=== PATIENT | female | born 1950 | race Caucasian/White ===

== ENCOUNTER → 2016-05-17 | Outpatient (CLI) | payer OTHER, MEDICARE | LOC: FIMAGING 08:29 | PROVIDERS: ATTEND Orthopaedic Surgery | DX: M70.61 Trochanteric bursitis, right hip (principal); Z96.641 Presence of right artificial hip joint ==

== ENCOUNTER 2016-06-21 07:47 | Outpatient (CLI) | payer OTHER, MEDICARE ==
[2016-06-21] MEDS ORDERED: NS 1,000 ML IV SCH (08:30)
[2016-06-21] MEDS ORDERED: NALOXONE HCL 0.4 MG/ML INJ ONE (08:57)
[2016-06-21] MEDS ORDERED: FLUMAZENIL 0.5 MG/5 ML MDV IVP ONE (08:57)
[2016-06-21] MEDS ORDERED: fentaNYL 100 MCG/2 ML INJ ONE ×2 (08:57→10:13)
[2016-06-21] MEDS ORDERED: MIDAZOLAM 2 MG/2 ML VIAL ONE (08:57)
[2016-06-21] MEDS ORDERED: PROMETHAZINE HCL 25 MG TAB ONE (10:59)
[2016-06-21] MEDS ORDERED: oxyCODONE IR 5 MG TAB ONE (11:16)
== END 2016-06-21 11:30 | disposition home health service (06) ==
LOC: FIMAGING 07:47
PROVIDERS: ATTEND Orthopaedic Surgery
DX: M75.121 Complete rotator cuff tear or rupture of right shoulder, not specified as traumatic (principal); M19.011 Primary osteoarthritis, right shoulder; M75.81 Other shoulder lesions, right shoulder; Z88.0 Allergy status to penicillin; Z88.2 Allergy status to sulfonamides
CPT/HCPCS: 73221; 99152; J2250; J3010; J2310

== ENCOUNTER → 2016-08-16 | Outpatient (CLI) | payer OTHER, MEDICARE | LOC: FLAB 10:02 | PROVIDERS: ATTEND Neurological Surgery | DX: Z98.1 Arthrodesis status (principal) ==

== ENCOUNTER → 2016-08-24 | Outpatient (CLI) | payer OTHER, MEDICARE | LOC: FIMAGING 09:35 | PROVIDERS: ATTEND Physician Assistant Surgical | DX: M89.38 Hypertrophy of bone, other site (principal); Z98.1 Arthrodesis status ==

== ENCOUNTER 2016-09-12 13:50 | Outpatient (CLI) | payer OTHER, MEDICARE ==
[2016-09-12] MEDS ORDERED: NALOXONE HCL 0.4 MG/ML INJ ONE (14:01)
[2016-09-12] MEDS ORDERED: FLUMAZENIL 0.5 MG/5 ML MDV IVP ONE (14:01)
[2016-09-12] MEDS ORDERED: fentaNYL 100 MCG/2 ML INJ ONE ×3 (14:02→15:43)
[2016-09-12] MEDS ORDERED: MIDAZOLAM 2 MG/2 ML VIAL ONE (14:02)
[2016-09-12] MEDS ORDERED: ACETAMINOPHEN 325 MG TAB ONE ×2 (16:25→16:28)
[2016-09-12] MEDS ORDERED: ONDANSETRON 4 MG/2 ML VIAL IVP PRN (16:30)
[2016-09-12] MEDS ORDERED: ACETAMINOPHEN 325 MG TAB PO PRN (16:30)
== END 2016-09-12 17:00 | disposition home health service (06) ==
LOC: FIMAGING 13:50
PROVIDERS: ATTEND Orthopaedic Surgery
DX: G95.20 Unspecified cord compression (principal); M48.02 Spinal stenosis, cervical region; M99.71 Connective tissue and disc stenosis of intervertebral foramina of cervical region; M51.34 Other intervertebral disc degeneration, thoracic region; M12.88 Other specific arthropathies, not elsewhere classified, other specified site; Z98.1 Arthrodesis status; M75.121 Complete rotator cuff tear or rupture of right shoulder, not specified as traumatic; M19.011 Primary osteoarthritis, right shoulder
CPT/HCPCS: 72141; 73200; 99152; 99153; J2250; J3010; J2310

== ENCOUNTER 2016-11-10 10:31 | Inpatient (IN) | payer OTHER, MEDICARE ==
[2016-11-10] MEDS ORDERED: ceFAZolin 2 GM/DEXTROSE 100 ML IV ONE (12:53)
[2016-11-10] MEDS ORDERED: LIDOCAINE 1% 2 ML INJ ID PRN (14:57)
[2016-11-10] MEDS ORDERED: LR 1,000 ML IV ONE (14:57)
[2016-11-10] MEDS ORDERED: CHLORHEXIDINE GLUC HIBICLENS 118 ML BTL TP ONE (15:23)
[2016-11-10] MEDS ORDERED: THROMBIN (BOVINE) 5,000 UNIT VIAL TP ONE (15:23)
[2016-11-10] MEDS ORDERED: BUPIVACAINE/EPI 0.25% 30 ML SDV ONE (15:23)
[2016-11-10] MEDS ORDERED: CITRATE DEXTROSE SOLN 500 ML BAG ONE (15:23)
[2016-11-10] MEDS ORDERED: CEFAZOLIN 2 GM/DEXTROSE/100 ML BAG IV ONE (15:23)
[2016-11-10] MEDS ORDERED: BUPIVACAINE 0.25% 30 ML SDV ONE ×2 (15:23→19:01)
[2016-11-10] MEDS ORDERED: BACITRACIN 50,000 UNITS/10 ML SYR IRR ONE (15:24)
--- NOTE | 2016-11-10 16:02 | CPEKG ---
Heart Rate: 84 RR Interval: 714 P-R Interval: 184 QRSD Interval: 74 QT Interval: 372 QTC Interval: 440 P [place]: 43 QRS [place]: -1 T Wave [place]: 26 EKG Severity - NORMAL ECG - EKG Impression: SINUS RHYTHM Electronically Signed By: Lan Israel 10-Nov-2016 22:59:44
[2016-11-10] MEDS ORDERED: THROMBIN (BOVINE) 20,000 UNIT VIAL TP ONE (16:06)
[2016-11-10] MEDS ORDERED: MIDAZOLAM 2 MG/2 ML VIAL IVP ONE (16:21)
[2016-11-10] MEDS ORDERED: ALBUTEROL 3 ML DEYVIAL IH ONE (16:23)
[2016-11-10] MEDS ORDERED: PROPOFOL/EMULSION 500 MG/50 ML BOTTLE IV ONE ×2 (16:28→19:22)
[2016-11-10] MEDS ORDERED: PROPOFOL 200 MG/20 ML VIAL ONE ×2 (16:28→20:37)
[2016-11-10] MEDS ORDERED: REMIFENTANIL HCL 1 MG VIAL ONE ×2 (16:28→19:22)
[2016-11-10] MEDS ORDERED: fentaNYL 100 MCG/2 ML INJ ONE ×3 (16:28→21:33)
[2016-11-10] MEDS ORDERED: LIDOCAINE 2% 100 MG/5 ML SYR ONE (16:34)
[2016-11-10] MEDS ORDERED: SUCCINYLCHOLINE CHLORIDE*ANESTHESIA ONLY*200 MG/10 ML SYR IVP ONE (16:34)
[2016-11-10] MEDS ORDERED: epHEDrine SULFATE 10 MG/ML SYR ONE (17:28)
[2016-11-10] MEDS ORDERED: PHENYLEPHRINE 10 MG/ML SDV ONE (17:46)
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
[2016-11-10] MEDS ORDERED: TRANEXAMIC ACID IV ONE (18:15)
[2016-11-10] MEDS ORDERED: NS IV ONE (18:15)
[2016-11-10] MEDS ORDERED: TRANEXAMIC ACID 800 MG in NS 100 ML IV ONE (19:00)
[2016-11-10] MEDS ORDERED: ONDANSETRON 4 MG/2 ML VIAL ONE (19:03)
[2016-11-10] MEDS ORDERED: DEXAMETHASONE 4 MG/ML VIAL ONE (19:03)
[2016-11-10] MEDS ORDERED: DESFLURANE 240 ML BOTTLE IH ONE (19:49)
[2016-11-10] MEDS ORDERED: OXYCODONE/APAP 5/325 TAB PO PRN (20:11)
[2016-11-10] MEDS ORDERED: PROMETHAZINE HCL 25 MG/ML INJ IVP PRN (20:11)
[2016-11-10] MEDS ORDERED: MEPERIDINE 25 MG/ML SYR IVP PRN (20:11)
[2016-11-10] MEDS ORDERED: NALOXONE HCL 0.4 MG/ML INJ IVP PRN ×2 (20:11→20:28)
[2016-11-10] MEDS ORDERED: fentaNYL 100 MCG/2 ML INJ IVP PRN (20:11)
[2016-11-10] MEDS ORDERED: ACETAMINOPHEN 500 MG TAB PO PRN (20:11)
[2016-11-10] MEDS ORDERED: HYDROmorphONE/DILAUDID 1 MG/ML SYR IVP PRN (20:11)
[2016-11-10] MEDS ORDERED: ONDANSETRON 4 MG/2 ML VIAL IVP PRN (20:11)
[2016-11-10] MEDS ORDERED: BACITRACIN ZINC 14.2 GM OINTTUBE TP ONE (20:18)
[2016-11-10] MEDS ORDERED: HYDROmorphONE/DILAUDID 2 MG/ML INJ ONE (20:18)
[2016-11-10] MEDS ORDERED: LACTULOSE 20 GM/30 ML UDCUP PO PRN (20:28)
[2016-11-10] MEDS ORDERED: MAGNESIUM HYDROXIDE 30 ML UDCUP PO PRN (20:28)
[2016-11-10] MEDS ORDERED: BISACODYL 10 MG SUPP PR PRN (20:28)
[2016-11-10] MEDS ORDERED: diphenhydrAMINE 25 MG CAP PO PRN (20:28)
[2016-11-10] MEDS ORDERED: morphINE PCA 30 MG/30 ML PCA IV PRN (20:28)
[2016-11-10] MEDS ORDERED: NS 1,000 ML IV SCH (20:30)
--- NOTE | 2016-11-10 20:41 | SOAPPROG ---
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
[2016-11-10] MEDS: fentaNYL 100 MCG/2 ML INJ IVP PRN ×4 (21:03→21:50)
[2016-11-10] MEDS ORDERED: HYDROmorphONE/DILAUDID 1 MG/ML SYR ONE (21:12)
[2016-11-10] MEDS: HYDROmorphONE/DILAUDID 1 MG/ML SYR IVP PRN ×5 (21:13→21:53)
--- NOTE | 2016-11-10 21:16 | POSTANESTH ---
Post Anesthetic Evaluation Cardiovascular Status: Normal, Stable, Similar to Pre-Op Cond Respiratory Status: Normal, Stable, Similar to Pre-op Cond. Level of Consciousness/Mental Status: Moderately Sleepy, Other, See Comment ( somewhat agitated, in pain. Precedex gtt ordered for pain control and sedation. Recommend transfer to step down for close monitoring and pain control. Discussed with primary team.) Pain Control: Inadeq, Add Tx Required Nausea/Vomiting Control: Adequate, Prn Tx Ordered Complications Possibly Related to Anesthesia: None Noted
--- NOTE | 2016-11-10 23:24 | GOP ---
[f rep st] OPERATIVE REPORT DATE OF OPERATION: 11/10/2016 SURGEON: Dandre Saleh MD NEUROSURGEON: Dandre Saleh MD SERVICE CREW SUPERVISOR: ORI Tong ANESTHESIA: General endotracheal. PREOPERATIVE DIAGNOSIS: 1. Severe spinal stenosis with spinal cord compression at T1-2. 2. Very complicated, high risk patient status post multiple prior cervical and thoracolumbar surger ies with progressive myelopathic symptoms. POSTOPERATIVE DIAGNOSIS: 1. Severe spinal stenosis with spinal cord compression at T1-2. 2. Very complicated, high risk patient status post multiple prior cervical and thoracolumbar surger ies with progressive myelopathic symptoms. PROCEDURE PERFORMED: 1. T1-2 laminectomy for decompression of spinal cord. 2. C7 through T3 posterior segmental (pedicle screw) fixation and posterior lateral fusion from C6 to T3 with local autograft and bone morphogenic protein. 3. Use of intraoperative microscopy, fluoroscopy and computer volumetric stereotactic navigation wi th intraoperative neurophysiologic testing. FINDINGS: ESTIMATED BLOOD LOSS: 150 cc. INDICATIONS: The patient is a very complicated 66-year-old woman with an extensive past medical and surgical history involving multiple surgeries in her cervical, thoracic, and lumbar spine. Current ly, she has C1 through C5 fused posteriorly with a C7-T1 anterior cervical plate and fusion that loo ks like a pseudoarthrosis. She has severe spinal stenosis at T1-2 and another construct extending f rom T5 through the ilium. She recently fell down and had progressive myelopathic symptoms, and pres ents now for a surgical decompression at T1-2 with stabilization from C6 through T3. Note, that I extensively discussed the complicated nature of the surgery and that there is no guaran shirin for a good outcome, and that she could be worse and potentially never heal from the surgery. I discussed this with her and both of her sons, named Jason and Matti. I offered her more time to co nsider other things, but she wished to proceed. DESCRIPTION OF PROCEDURE: After informed consent was obtained, the patient was taken to the operati ng room and placed in the prone position with the head in the radiolucent Barnum cold header. The posterior cervical, thoracic regions were prepped and draped in a sterile fashion. After fluorosco pic localization of the correct levels, the subcutaneous and intramuscular tissues were infiltrated with local anesthesia. A midline linear incision was then created from approximately C6 through T3. This was carried down to the fascial layer, which was then incised using monopolar electrocautery and carried in a subperiosteal plane along the spinous processes and lamina bilaterally. Note that the anatomy was extremely distorted and the exposure took about 3 times as long as normal. Eventually, we were able to identify all of the appropriate anatomy and following this, brought the O arm neuronavigational system in, and carefully dissected out over the facet joints. 3D reconstruc deniz images were obtained and sent to the [facility] station. Using computer volumetric stereotactic na vigation, pedicle screws were placed at C7, T1, T2, and T3. I felt that I did not want to place scr ews at C6 and instead, would use all the bony surface area for the fusion to tie it into below. Fol lowing this, T1 and T2 laminectomies were performed with decompression of the spinal canal. The lig amentum flavum was extremely stuck to the dura and this required very meticulous dissection under hi gh-power microscopy but eventually, I achieved an excellent decompression. The bone was cleaned of any soft tissue and morcellized. Following a repeat 3D reconstructed image that verified good posit ion of the screws, the rods were then placed and secured, and the remaining lamina and transverse pr ocesses were extensively decorticated from C6 through T3 and the bone morphogenic protein along with morselized autograft from laminectomy defects were placed from C6 through T3 for posterolateral fus ion. A drain was placed. The subcutaneous and intramuscular tissues were re-infiltrated with local anesthesia. The wound was closed in a layered fashion using interrupted Vicryl sutures followed by Steri-Strips on the skin. COMPLICATIONS: None. DISPOSITION: The patient is currently in the process of being repositioned for extubation. /[id number]/MODL
[2016-11-11] MEDS: ACETAMINOPHEN 500 MG TAB PO SCH ×4 (00:03→22:07)
[2016-11-11] MEDS: FAMOTIDINE 20 MG TAB PO SCH ×3 (00:57→22:08)
[2016-11-11] MEDS: ceFAZolin 2 GM/DEXTROSE 100 ML IV SCH ×2 (00:57→09:44)
[2016-11-11] MEDS: DEXMEDETOMIDINE HCL 400 MCG in NS 100 ML IV SCH ×2 (00:59→04:59)
[2016-11-11] MEDS: METHOCARBAMOL 750 MG TAB PO PRN (01:00)
[2016-11-11] MEDS: PREGABALIN 75 MG CAP PO SCH ×3 (01:00→22:07)
[2016-11-11] MEDS: POLYETHYLENE GLYCOL 3350 17 GM PKT PO SCH ×4 (01:03→22:07)
[2016-11-11] MEDS: SENNOSIDES/DOCUSATE SODIUM TAB PO SCH ×3 (01:03→22:07)
[2016-11-11 05:27] LABS: ANION GAP 16 mEq/L (8-16); CALCIUM 9.1 mg/dL (8.5-10.4); CARBON DIOXIDE 15 mEq/l (22-31); CHLORIDE 103 mEq/L (97-110); CREATININE 0.7 mg/dL (0.6-1.0); GLOMERULAR FILTRATION RATE > 60; GLUCOSE 151 mg/dL (70-100); POTASSIUM 5.6 mEq/L (3.5-5.2); SODIUM 134 mEq/L (134-144)
--- NOTE | 2016-11-11 07:53 | SOAPPROG ---
SOAP Progress Note Assessment/Plan: Assessment: POD #1 sp C7-T3 fusion. pain controlled. was on Precedex overnight, now off Plan: Follow neuro exam Continue JOSE to suction advance activity with PT/OT elevated K+. Normal saline without K is ordered CBC pending this AM Subjective: awakes to voice, groggy but conversant. She feels like her left hand feels different and her speech is off. Objective: Vital Signs Temp Pulse Resp BP Pulse Ox 36.9 C 59 L 16 118/57 L 99 11/11/16 07:40 11/11/16 07:40 11/11/16 07:40 11/11/16 07:40 11/11/16 07:40 Laboratory Results 11/11/16 04:45 11/10/16 11/11/16 11/12/16 05:59 05:59 05:59 Intake Total 1600 Output Total 585 Balance 1015 NEURO: oriented x 4 follows commands x 4 equal strength in bilateral upper extremities preexisting bilateral R>L foot weakness JOSE: 35ml ICD10 Worksheet Patient Problems: Problems Problem Status Onset Cervical stenosis of spinal canal Acute Cervical vertebral fusion Acute Chest pain Acute Chronic Disease Mgmt/Transitional Care Acute Fall Acute Hypoxia Acute Left-sided weakness Acute Status migrainosus Acute
[2016-11-11 08:08] LABS: % IMMATURE GRANULYOCYTES 0.6 % (0.0-1.1); ABSOLUTE IMMATURE GRANULOCYTES 0.08 10^3/uL (0.00-0.10); ADD DIFF? NO; ADD MORPH? NO; ADD SCAN? NO; ATYPICAL LYMPHOCYTE FLAG 0 (0-99); FRAGMENT RBC FLAG 0 (0-99); HEMATOCRIT 35.9 % (38.0-47.0); HEMOGLOBIN 11.4 g/dL (12.6-16.3); LEFT SHIFT FLG 0 (0-99); LIPEMIA HEMOLYSIS FLAG 80 (0-99); MEAN CELL HEMOGLOBIN 26.9 pg (27.9-34.1); MEAN CELL HEMOGLOBIN CONCENTR. 31.8 g/dL (32.4-36.7); MEAN CELL VOLUME 84.7 fL (81.5-99.8); MEAN PLATELET VOLUME 10.2 fL (8.7-11.7); PLATELET CLUMPS FLAG 10 (0-99); PLATELET COUNT 255 10^3/uL (150-400); RED BLOOD CELL COUNT 4.24 10^6/uL (4.18-5.33); RED CELL DISTRIBUTION WIDTH 15.9 % (11.5-15.2)
[2016-11-11] MEDS: ALBUTEROL 200 PUFFS/18 GM MDI IH PRN ×2 (09:52→15:22)
[2016-11-11] MEDS: TRIAMTERENE/HCTZ 37.5/25 1 EACH TAB PO SCH (10:12)
--- NOTE | 2016-11-11 11:56 | CPEKG ---
Heart Rate: 64 RR Interval: 938 P-R Interval: 192 QRSD Interval: 76 QT Interval: 400 QTC Interval: 413 P [place]: 57 QRS [place]: 31 T Wave [place]: 41 EKG Severity - BORDERLINE ECG - EKG Impression: SINUS RHYTHM EKG Impression: ATRIAL PREMATURE COMPLEX EKG Impression: BORDERLINE T WAVE ABNORMALITIES Electronically Signed By: Lan Israel 11-Nov-2016 12:39:23
[2016-11-11] MEDS: morphINE PCA 30 MG/30 ML PCA IV PRN ×2 (12:13→23:05)
[2016-11-11] MEDS ORDERED: ALTEPLASE 2 MG VIAL IVP PRN (13:07)
[2016-11-11] MEDS ORDERED: IOPAMIDOL (ISOVUE 370) 100 ML BTL IV ONE (13:19)
[2016-11-11 15:55] LABS: HEMATOCRIT 26.6 % (38.0-47.0); HEMOGLOBIN 8.2 g/dL (12.6-16.3); MEAN CELL HEMOGLOBIN 26.9 pg (27.9-34.1); MEAN CELL HEMOGLOBIN CONCENTR. 30.8 g/dL (32.4-36.7); MEAN CELL VOLUME 87.2 fL (81.5-99.8); RED BLOOD CELL COUNT 3.05 10^6/uL (4.18-5.33); RED CELL DISTRIBUTION WIDTH 16.1 % (11.5-15.2)
--- NOTE | 2016-11-11 17:30 | GCON ---
[f rep st] CONSULTATION CRITICAL CARE CONSULT DATE OF CONSULTATION: 11/11/2016 HISTORY OF PRESENT ILLNESS: The patient is a 66-year-old female with a history of multiple spine benitez rgeries in the past who was admitted yesterday for a C3-T7 decompression her surgery was fairly unre markable. Postoperatively she was confused and required Precedex overnight, was able to come off th at fairly easily by this morning. She did complain of neck pain and a headache soon after the Prece dex was off and was also found to be hypotensive with a blood pressure in the 70s. She was given a bolus of 500 normal saline which did improve her to the mid-80s, and a second bolus of about 250 cc of normal saline increased her systolic pressure to the low 90s. She was placed back in bed in orde r to perform a NICOM cardiac responsiveness test, and while she is seated in bed at rest, had sudden onset of which she described as severe left-sided chest pain that was worse with inspiration. She reported that she did have a venous thromboembolic event after one of her previous hip surgeries but is not on long-term anticoagulation. She also has a history of reflux disease and says that her sy mptoms seem quite atypical for reflux. She has had no nausea or vomiting. The pain does not radiat e anywhere. She does have shortness of breath but no cough, fevers, chills or sweats and no hemopty sis over this period of time. An EKG showed no ischemic changes. Troponin was initially negative. Chest x-ray showed a small amount of platelike atelectasis in the left lower lobe but was otherwise unremarkable by my exam. Her white count this morning was 13 with a platelet count of 255, and hem atocrit of 35. REVIEW OF SYSTEMS: Otherwise negative. PAST MEDICAL HISTORY: Includes: 1. COPD with an unknown FEV1. 2. Migraines. 3. Chronic anemia. 4. Hypertension. 5. Chronic low back pain. 6. Gastroesophageal reflux disease. 7. Allergic rhinitis. 8. Deep vein thrombosis. 9. Kyphosis. 10. An episode of atypical chest pain on 07/02/2016. Was evaluated at [facility]. EKG an d troponins were all negative as was her routine lab work and a CT angiogram of her chest at that ti al. PAST SURGICAL HISTORY: Includes: 1. Multiple spine surgeries. 2. Appendectomy. 3. . 4. Open reduction/internal fixation of a left ankle fracture. 5. Bilateral total hip arthroplasties that required revisions. 6. Bilateral total knee arthroplasties. ALLERGIES: Include penicillin and sulfa, though she seems to be able to take Ancef. SOCIAL HISTORY: She has at least a 40 pack-year smoking history and may have quit in 2016. FAMILY HISTORY: Includes coronary disease in her mother and cancer in her father. CURRENT MEDICATIONS: Include Tylenol, Ventolin, Dulcolax, Benadryl, Lovenox, which is not yet start ed, Pepcid, milk a magnesia, Robaxin, morphine, Narcan, Zofran, oxycodone, Lyrica, Senokot, triamter zuly, hydrochlorothiazide. PHYSICAL EXAM: VITAL SIGNS: She was afebrile. Her blood pressure was 95/50, heart rate of about 7 5 and normal sinus rhythm. Oxygen saturation was 96% on 2 L nasal cannula. GENERAL: She was in ob vious distress from her chest discomfort and dyspnea but was able to speak in full sentences without using accessory muscles for breathing. HEENT: Pupils were equally round, reactive to light, nonic teric and noninjected. Mucous membranes were moist without erythema or exudate. NECK: Showed no j ugular vein distention. A soft collar was in place. LUNGS: Breath sounds were clear to auscultati on bilaterally without wheezes, rubs or rales. HEART: Regular rate and rhythm without obvious murm ur, rub or gallops. ABDOMEN: Soft, nontender, nondistended without hepatosplenomegaly. Her chest pain was not reproducible. EXTREMITIES: Showed no clubbing, cyanosis, or edema and were quite warm . NEUROLOGICAL: Nonfocal including cranial nerves, deep tendon reflexes. SKIN: Warm and dry with out evidence of rash. OBJECTIVE DATA: This morning her white count was 13.2, hematocrit was 35.9 and platelets were 255. Basic metabolic panel was unremarkable though her potassium was 5.6 at that time. First troponin d rawn was negative. Chest x-ray as described above as was her EKG. ASSESSMENT AND PLAN: 1. Atypical chest pain which I do not believe this is cardiac in nature. We have treated her with bedrest and intermittent morphine for the short term. Other possibilities would be chronic obstruct reilly pulmonary disease with a mucus plug, though her chronic obstructive pulmonary disease sounds lik e it is fairly stable. Next is reflux disease. Next, pulmonary embolism seems unlikely but is poss ible. Other unlikely possibilities would be a cardiogenic source which seemed very unlikely. Sepsi s, pneumothorax or aortic dissection. Based on her chest x-ray findings, the mediastinum looked nor mal. There are no pleural effusions. There is no evidence of pneumonia or aortic dissection. In t erms of management, we will check a CT angiogram, give her nebulized inhaler and consider a GI cockt ail. 2. Hypotension. This appears to be very responsive to fluid and her blood pressure has normalized at this time. I would continue to hold her antihypertensive therapies from home and look at an H an d H to make certain that there is no ongoing bleeding. Probably not mentioned above was that this h ypotension could certainly have contributed to her feeling of chest pain. 3. Chronic obstructive pulmonary disease. This appears to be mild at best. She has an inhaler shaka ilable which we can encourage her to use at this time. A total of 45 minutes of critical care time was required to evaluate this patient. /[id number]/MODL
[2016-11-12] MEDS: POLYETHYLENE GLYCOL 3350 17 GM PKT PO SCH ×4 (09:30→23:20)
[2016-11-12] MEDS: PREGABALIN 75 MG CAP PO SCH ×2 (09:30→20:02)
[2016-11-12] MEDS: SENNOSIDES/DOCUSATE SODIUM TAB PO SCH ×2 (09:30→20:03)
[2016-11-12] MEDS: FAMOTIDINE 20 MG TAB PO SCH ×2 (09:30→20:03)
[2016-11-12 10:03] LABS: HEMATOCRIT 32.4 % (38.0-47.0); HEMOGLOBIN 9.9 g/dL (12.6-16.3); MEAN CELL HEMOGLOBIN 26.7 pg (27.9-34.1); MEAN CELL HEMOGLOBIN CONCENTR. 30.6 g/dL (32.4-36.7); MEAN CELL VOLUME 87.3 fL (81.5-99.8); RED BLOOD CELL COUNT 3.71 10^6/uL (4.18-5.33); RED CELL DISTRIBUTION WIDTH 16.4 % (11.5-15.2)
[2016-11-12] MEDS: TRIAMTERENE/HCTZ 37.5/25 1 EACH TAB PO SCH (10:18)
[2016-11-12] MEDS: ACETAMINOPHEN 500 MG TAB PO SCH ×3 (10:21→20:54)
[2016-11-12 10:30] LABS: ANION GAP 9 mEq/L (8-16); CALCIUM 8.1 mg/dL (8.5-10.4); CARBON DIOXIDE 22 mEq/l (22-31); CHLORIDE 105 mEq/L (97-110); CREATININE 0.6 mg/dL (0.6-1.0); GLOMERULAR FILTRATION RATE > 60; GLUCOSE 100 mg/dL (70-100); POTASSIUM 4.2 mEq/L (3.5-5.2); SODIUM 136 mEq/L (134-144)
[2016-11-12] MEDS: METHOCARBAMOL 750 MG TAB PO PRN ×2 (10:30→20:02)
--- NOTE | 2016-11-12 10:42 | PDINTPN ---
Seam Sewer Progress Note Assessment/Plan: Assessment/plan: 66 F s/p C3-T7 decompression complicated by postop hypotension followed by chest pain. * Hypotension- likely related to hypovolemia since work-up negative for other possibilities (eg cardiac, PE, infection). Currently stable and never needed pressors. PICC placed * Chest pain- unclear etiology but may have been atypical GERD or referred pain from surgery. EKG, troponins, CTA all negative. * Anemia- resolved without transfusion. No signs of bleeding to explain hypotension. * COPD- stable. Continue prn nebs. * OK for floor Subjective: Feels better today with resolution of chest pain. Objective: Vital Signs Temp Pulse Resp BP Pulse Ox 36.5 C 106 H 18 142/79 H 99 11/12/16 08:00 11/12/16 08:00 11/12/16 04:00 11/12/16 08:00 11/12/16 08:00 Laboratory Results 11/12/16 09:45 11/12/16 09:45 11/11/16 11/12/16 11/13/16 05:59 05:59 05:59 Intake Total 1600 1275 Output Total 585 2550 Balance 1015 -1275 Physical Exam - Physical Exam General Appearance: WD/WN, alert, other (soft collar) EENT: PERRL/EOMI Respiratory: lungs clear, normal breath sounds, No respiratory distress Cardiac/Chest: regular rate, rhythm, No edema Abdomen: non-tender, soft, No distended Skin: normal color, warm/dry Lymphatic: no adenopathy Extremities: No pedal edema Neuro/Psych: alert, normal mood/affect, oriented x 3 ICD10 Worksheet Patient Problems: Problems Problem Status Onset Cervical stenosis of spinal canal Acute Cervical vertebral fusion Acute Chest pain Acute Chronic Disease Mgmt/Transitional Care Acute Fall Acute Hypoxia Acute Left-sided weakness Acute Status migrainosus Acute
--- NOTE | 2016-11-12 11:59 | NEUSURGPN ---
Date of Surgery: 11/10/16 Post Op Day: 2 Assessment/Plan: 66 yo female POD #2 sp C7-T3 fusion. Plan: - neuro stable - pain control, transition off of SALES AND SUPPORT CENTER AGENT and switch to orals as able to - continue JOSE drain - may switch between a cervical soft and hard collar depending on patient's preference - PT/OT - will transfer to the floor today Subjective: Sitting in bedside chair doing well. Pain controlled. No overnight issues. Objective: Awake. Alert. PERRL. EOMI Moving all extremities Following commands Soft collar in place Catheter Insertion Date: 11/10/16 - Physician Discussed Patient with : Delfino Neurosurgery Physical Exam - Vitals, I&O, Labs I and O 11/11/16 11/12/16 11/13/16 05:59 05:59 05:59 Intake Total 1600 1275 Output Total 585 2550 Balance 1015 -1275 Weight 72.575 kg Intake: Oral (ml) 0 IV Intake (ml) 1500 1275 IV Infused (ml) 100 ceFAZolin 2 GM/DEXTROSE 100 100 ml @ 200 mls/hr IV ONCALL ONE Rx#:[id number] Output: Urine (ml) 450 2450 Catheter 450 2450 Estimated Blood Loss (ml) 100 JOSE Drain Output (ml) 35 100 Posterior Neck 35 100 Other: Number of Stools Catheter 0 Vital Signs Temp Pulse Resp BP Pulse Ox 36.5 C 94 18 106/45 L 98 11/12/16 11:55 11/12/16 11:55 11/12/16 04:00 11/12/16 11:55 11/12/16 11:55 Laboratory Results 11/12/16 09:45 11/12/16 09:45 ICD10 Worksheet Patient Problems: Problems Problem Status Onset Cervical stenosis of spinal canal Acute Cervical vertebral fusion Acute Chest pain Acute Chronic Disease [facility]/Transitional Care Acute Fall Acute Hypoxia Acute Left-sided weakness Acute Status migrainosus Acute
[2016-11-12] MEDS: morphINE PCA 30 MG/30 ML PCA IV PRN (13:18)
[2016-11-12] MEDS: oxyCODONE IR 5 MG TAB PO PRN ×2 (14:21→20:54)
[2016-11-12] MEDS: ONDANSETRON DISINTEGRATING 4 MG TAB PO PRN (20:55)
[2016-11-13] MEDS: oxyCODONE IR 5 MG TAB PO PRN ×4 (02:22→20:18)
[2016-11-13] MEDS: ACETAMINOPHEN 500 MG TAB PO SCH ×3 (04:36→20:20)
[2016-11-13 05:06] LABS: HEMATOCRIT 33.1 % (38.0-47.0); MEAN CELL HEMOGLOBIN 26.4 pg (27.9-34.1); MEAN CELL HEMOGLOBIN CONCENTR. 30.2 g/dL (32.4-36.7); MEAN CELL VOLUME 87.3 fL (81.5-99.8); RED BLOOD CELL COUNT 3.79 10^6/uL (4.18-5.33); RED CELL DISTRIBUTION WIDTH 16.4 % (11.5-15.2)
[2016-11-13 05:23] LABS: ANION GAP 7 mEq/L (8-16); CALCIUM 8.9 mg/dL (8.5-10.4); CARBON DIOXIDE 26 mEq/l (22-31); CHLORIDE 100 mEq/L (97-110); CREATININE 0.7 mg/dL (0.6-1.0); GLOMERULAR FILTRATION RATE > 60; GLUCOSE 96 mg/dL (70-100); POTASSIUM 4.3 mEq/L (3.5-5.2); SODIUM 133 mEq/L (134-144)
[2016-11-13] MEDS: ENOXAPARIN 40 MG/0.4 ML SYR SC SCH (07:35)
[2016-11-13] MEDS: TRIAMTERENE/HCTZ 37.5/25 1 EACH TAB PO SCH (07:35)
[2016-11-13] MEDS: PREGABALIN 75 MG CAP PO SCH ×2 (07:35→20:20)
[2016-11-13] MEDS: SENNOSIDES/DOCUSATE SODIUM TAB PO SCH ×2 (07:35→20:20)
[2016-11-13] MEDS: FAMOTIDINE 20 MG TAB PO SCH ×2 (07:36→20:20)
[2016-11-13] MEDS: POLYETHYLENE GLYCOL 3350 17 GM PKT PO SCH ×3 (07:36→20:22)
[2016-11-13] MEDS: METHOCARBAMOL 750 MG TAB PO PRN ×2 (07:38→15:02)
--- NOTE | 2016-11-13 08:43 | NEUSURGPN ---
Date of Surgery: 11/10/16 Post Op Day: 3 Assessment/Plan: 66 yo female POD #2 sp C7-T3 fusion. Plan: - neuro stable - pain control, transition off of TECHNICAL SERVICES ANALYST and switch to orals as able to - continue JOSE drain - may switch between a cervical soft and hard collar depending on patient's preference - PT/OT - please contact neurosurgery with any changes in neuro status/exam Subjective: Having localized neck pain, feeling nauseated this morning. Objective: Awake. Alert Incision with dressing Muscle strength 5/5 Sensation intact Catheter Insertion Date: 11/10/16 Neurosurgery Physical Exam - Vitals, I&O, Labs I and O 11/12/16 11/13/16 11/14/16 05:59 05:59 05:59 Intake Total 1275 310 Output Total 2550 2250 15 Balance -5 15 Intake: Oral (ml) 200 IV Intake (ml) 1275 110 Output: Urine (ml) 2450 2250 Bedside Commode 450 Catheter 2450 Toilet 1800 JOSE Drain Output (ml) 100 15 Posterior Neck 100 15 Other: Intake Quantity Yes Sufficient Number of Voids Toilet 1 Number of Stools Catheter 0 Vital Signs Temp Pulse Resp BP Pulse Ox 36.9 C 83 16 107/45 L 92 11/13/16 07:32 11/13/16 07:32 11/13/16 07:32 11/13/16 07:32 11/13/16 07:32 Laboratory Results 11/13/16 04:32 11/13/16 04:32 ICD10 Worksheet Patient Problems: Problems Problem Status Onset Cervical stenosis of spinal canal Acute Cervical vertebral fusion Acute Chest pain Acute Chronic Disease [facility]/Transitional Care Acute Fall Acute Hypoxia Acute Left-sided weakness Acute Status migrainosus Acute
[2016-11-13] MEDS: morphINE SR 15 MG TAB PO SCH ×2 (10:27→20:18)
[2016-11-14] MEDS: oxyCODONE IR 5 MG TAB PO PRN ×5 (01:30→19:56)
[2016-11-14] MEDS: DIAZEPAM 5 MG TAB PO PRN (01:30)
[2016-11-14 05:15] LABS: HEMATOCRIT 32.2 % (38.0-47.0); MEAN CELL HEMOGLOBIN 26.7 pg (27.9-34.1); MEAN CELL HEMOGLOBIN CONCENTR. 31.1 g/dL (32.4-36.7); MEAN CELL VOLUME 86.1 fL (81.5-99.8); RED BLOOD CELL COUNT 3.74 10^6/uL (4.18-5.33); RED CELL DISTRIBUTION WIDTH 16.1 % (11.5-15.2)
[2016-11-14 05:20] LABS: ANION GAP 8 mEq/L (8-16); CALCIUM 9.1 mg/dL (8.5-10.4); CARBON DIOXIDE 26 mEq/l (22-31); CHLORIDE 98 mEq/L (97-110); CREATININE 0.5 mg/dL (0.6-1.0); GLOMERULAR FILTRATION RATE > 60; GLUCOSE 102 mg/dL (70-100); POTASSIUM 4.5 mEq/L (3.5-5.2); SODIUM 132 mEq/L (134-144)
[2016-11-14] MEDS: ACETAMINOPHEN 500 MG TAB PO SCH ×3 (05:31→20:52)
[2016-11-14] MEDS: PREGABALIN 75 MG CAP PO SCH ×2 (08:18→19:56)
[2016-11-14] MEDS: FAMOTIDINE 20 MG TAB PO SCH ×2 (08:19→19:56)
[2016-11-14] MEDS: SENNOSIDES/DOCUSATE SODIUM TAB PO SCH ×2 (08:19→19:55)
[2016-11-14] MEDS: METHOCARBAMOL 750 MG TAB PO PRN ×3 (08:19→20:52)
[2016-11-14] MEDS: TRIAMTERENE/HCTZ 37.5/25 1 EACH TAB PO SCH (08:19)
[2016-11-14] MEDS: POLYETHYLENE GLYCOL 3350 17 GM PKT PO SCH ×3 (08:20→20:52)
[2016-11-14] MEDS: ENOXAPARIN 40 MG/0.4 ML SYR SC SCH (08:20)
--- NOTE | 2016-11-14 08:37 | NEUSURGPN ---
Assessment/Plan: 66 yo female POD #3 sp C7-T3 fusion. Plan: - neuro stable - pain control, on orals - Hold MS contin this AM due to confusion. - continue JOSE drain - may switch between a cervical soft and hard collar depending on patient's preference - PT/OT - please contact neurosurgery with any changes in neuro status/exam - T spine xrays reviewed show stable hardware - Dispo: Possibly home tomorrow pending clinical course, need to have confusion resolved Subjective: Pt resting in bed, states she feels disoriented Objective: AAOx3 NAD VSS MAEx4 Motor 5/5 BUE with exception of L handgrip 4+/5 Incision cdi Soft collar on Urinary Catheter in Place: No Catheter Insertion Date: 11/10/16 Neurosurgery Physical Exam - Vitals, I&O, Labs I and O 11/13/16 11/14/16 11/15/16 05:59 05:59 05:59 Intake Total 310 600 Output Total 2250 1220 700 Balance -1940 -620 -700 Intake: Oral (ml) 200 400 IV Intake (ml) 110 200 Output: Urine (ml) 2250 1200 700 Bedside Commode 450 Toilet 1800 1200 700 JOSE Drain Output (ml) 20 Posterior Neck 20 Other: Intake Quantity Yes Sufficient Number of Voids Toilet 1 1 Vital Signs Temp Pulse Resp BP Pulse Ox 36.9 C 84 16 139/70 H 92 11/14/16 07:20 11/14/16 07:20 11/14/16 07:20 11/14/16 08:19 11/14/16 07:20 Laboratory Results 11/14/16 04:51 11/14/16 04:51 ICD10 Worksheet Patient Problems: Problems Problem Status Onset Cervical stenosis of spinal canal Acute Cervical vertebral fusion Acute Chest pain Acute Chronic Disease [facility]/Transitional Care Acute Fall Acute Hypoxia Acute Left-sided weakness Acute Status migrainosus Acute
[2016-11-14] MEDS: morphINE SR 15 MG TAB PO SCH (11:08)
[2016-11-14] MEDS: LORazepam 1 MG TAB PO PRN (19:53)
[2016-11-15] MEDS: LORazepam 1 MG TAB PO PRN ×2 (04:00→20:54)
[2016-11-15] MEDS: oxyCODONE IR 5 MG TAB PO PRN (04:00)
[2016-11-15] MEDS: METHOCARBAMOL 750 MG TAB PO PRN ×2 (04:00→17:01)
[2016-11-15 05:09] LABS: HEMATOCRIT 35.7 % (38.0-47.0); HEMOGLOBIN 11.1 g/dL (12.6-16.3); MEAN CELL HEMOGLOBIN 26.7 pg (27.9-34.1); MEAN CELL HEMOGLOBIN CONCENTR. 31.1 g/dL (32.4-36.7); MEAN CELL VOLUME 85.8 fL (81.5-99.8); RED BLOOD CELL COUNT 4.16 10^6/uL (4.18-5.33); RED CELL DISTRIBUTION WIDTH 15.9 % (11.5-15.2)
[2016-11-15 05:28] LABS: ANION GAP 10 mEq/L (8-16); CALCIUM 9.5 mg/dL (8.5-10.4); CARBON DIOXIDE 29 mEq/l (22-31); CHLORIDE 94 mEq/L (97-110); CREATININE 0.5 mg/dL (0.6-1.0); GLOMERULAR FILTRATION RATE > 60; GLUCOSE 91 mg/dL (70-100); POTASSIUM 4.4 mEq/L (3.5-5.2); SODIUM 133 mEq/L (134-144)
--- NOTE | 2016-11-15 07:25 | NEUSURGPN ---
Assessment/Plan: 66 yo female POD #4 sp C7-T3 fusion. Plan: - neuro stable - pain control, on orals - DC MS contin. Oxycodone 5mg. Give another 5mg if pain not well controlled - JOSE drain removed yesterday - CXR ordered pt with productive cough and confusion, r/o pneumonia - may switch between a cervical soft and hard collar depending on patient's preference - PT/OT - please contact neurosurgery with any changes in neuro status/exam - T spine xrays reviewed show stable hardware - Dispo: Possibly home tomorrow pending clinical course, need to have confusion resolved -D/w Dr Whyte Subjective: Pt resting in bed, per RN was given Ativan and oxycodone at 4AM today Objective: Sleeping but arousable MAEx4 Follows commands Motor 5/5 BUE Soft collar on Urinary Catheter in Place: No Catheter Insertion Date: 11/10/16 - Physician Discussed Patient with : [facility] Physical Exam - Vitals, I&O, Labs I and O 11/14/16 11/15/16 11/16/16 05:59 05:59 05:59 Intake Total 600 200 Output Total 1220 1000 Balance -620 -800 Intake: Oral (ml) 400 200 IV Intake (ml) 200 Output: Urine (ml) 1200 1000 Toilet 1200 1000 JOSE Drain Output (ml) 20 Posterior Neck 20 Other: Number of Voids Toilet 1 2 Number of Stools Toilet 1 Vital Signs Temp Pulse Resp BP Pulse Ox 36.5 C 88 18 93/61 L 93 11/15/16 04:00 11/15/16 04:00 11/15/16 04:00 11/15/16 04:00 11/15/16 04:00 Laboratory Results 11/15/16 04:25 11/15/16 04:25 ICD10 Worksheet Patient Problems: Problems Problem Status Onset Cervical stenosis of spinal canal Acute Cervical vertebral fusion Acute Chest pain Acute Chronic Disease [facility]/Transitional Care Acute Fall Acute Hypoxia Acute Left-sided weakness Acute Status migrainosus Acute
[2016-11-15] MEDS: ENOXAPARIN 40 MG/0.4 ML SYR SC SCH (09:31)
[2016-11-15] MEDS: TRIAMTERENE/HCTZ 37.5/25 1 EACH TAB PO SCH (09:31)
[2016-11-15] MEDS: POLYETHYLENE GLYCOL 3350 17 GM PKT PO SCH ×2 (09:31→17:00)
[2016-11-15] MEDS: PREGABALIN 75 MG CAP PO SCH ×2 (09:31→20:32)
[2016-11-15] MEDS: FAMOTIDINE 20 MG TAB PO SCH ×2 (09:42→20:32)
[2016-11-15] MEDS: SENNOSIDES/DOCUSATE SODIUM TAB PO SCH ×2 (09:42→20:32)
[2016-11-15] MEDS: ACETAMINOPHEN 500 MG TAB PO SCH ×4 (09:47→23:52)
[2016-11-15] MEDS ORDERED: IPRATROPIUM/ALBUTEROL 3 ML DEYVIAL IH PRN (22:35)
[2016-11-15] MEDS ORDERED: NS 1,000 ML IV SCH (22:45)
--- NOTE | 2016-11-15 23:30 | GCON ---
[f rep st] CONSULTATION DATE OF CONSULTATION: 11/15/2016 REASON FOR CONSULTATION: I was asked by Dr. Saleh to see this patient in regard to her alte red mental status. HISTORY OF PRESENT ILLNESS: This is a 66-year-old female, who is now postoperative day #4, status p ost C7 through T3 fusion. Her course in the ICU was notable for an episode of atypical chest pain w ith a normal EKG and troponins, as well as hypotension, which self-resolved with fluids, she did not need pressors. I am consulted because the patient has been more confused today. When I am seeing her, she seems reluctant to provide history. She will wake up, is moving all of he r extremities, has a nonfocal neurologic exam; however, she appears uncomfortable. She complains of pain, which is worse today, between her shoulderblades. She does have a cough. She tells me she w ill occasionally wheeze with her COPD. I do not know if her cough is productive of sputum. She has not had any fevers by my chart review. She has not had a bowel movement for a few days either. REVIEW OF SYSTEMS: The remainder of her review of systems is negative. PAST MEDICAL/SURGICAL HISTORY: 1. COPD. 2. Migraines. 3. Chronic anemia. 4. Hypertension. 5. Chronic low back pain. 6. GERD. 7. Allergic rhinitis. 8. History of a DVT. 9. Kyphosis. 10. Spinal surgery. 11. Appendectomy. 12. . MEDICATIONS: Please see medication reconciliation. ALLERGIES: Penicillin and sulfa. FAMILY HISTORY: Her mother had coronary artery disease. SOCIAL HISTORY: She has at least a [id number] history of smoking. She lives with her son. REVIEW OF SYSTEMS: A 10-point review of systems is conducted and is negative except per HPI. PHYSICAL EXAMINATION: VITAL SIGNS: Blood pressure 133/88, heart rate 97, respiration rate 18, satu rating 92% on 4 L. She is afebrile. GENERAL: The patient is a pleasant female, who appears uncomf ortable, provide some history, though is reluctant to have too much conversation. HEENT: Shows her to be normocephalic, atraumatic. NECK: Shows her to be wearing a cervical soft collar. BACK: Sh ows her back midline incision from the thoracic spine, the cervical spine to be clean. There is no purulence or exudate or significant surrounding erythema. CARDIOVASCULAR: Shows regular rate and r hythm. No murmurs, rubs, or gallops. PULMONARY: Shows her to have diffuse bilateral wheezes. I d o not appreciate any rales or rhonchi. ABDOMEN: Soft, nontender, nondistended. SKIN: No rash. G U: Shows no [place]. NEUROLOGIC: Shows her to be alert and oriented x3. She is moving all extremit ies. PSYCHIATRIC: Shows normal mood and affect. LABORATORY DATA: White count is 8.04, hemoglobin is 11, platelets are 241, sodium is 133, creatinin e 0.5. DATA: 1. I reviewed her chart. 2. I personally reviewed and interpreted her chest x-ray. This shows a likely right lower lobe pne umonia. IMPRESSION AND PLAN: A 66-year-old female, status post cervical fusion, now has altered mental stat us. 1. Acute encephalopathy, off her baseline: Differential includes cardiac, infective, metabolic. I think likely etiology is right lower lobe pneumonia from an aspiration event. I will cover her wit h [place], follow her clinical course. I do note that she has a normal white count and she is afeb rile, though she is coughing. She is also hypoxic. We will send EKG and troponin because of her pr evious episode of chest pain, which she is now denying. If those are negative, will not work up car diac any further. Her sodium is slightly low, though I do not think this would be causing confusion . I suspect she is slightly dehydrated from today. I will give her 1 L of normal saline. She has not had a bowel movement for a few days per report, she does have an appropriate bowel protocol. We will follow her clinical course and adjust treatment as necessary. 2. Hypoxia/diffuse wheezes: Suspect that this is a mild COPD exacerbation potentially triggered by pneumonia. We will give her nebulizers. We will hold on steroids given her recent spinal fusion. 3. History of a deep venous thrombosis: She had a negative CT angiogram earlier at this hospitaliz ation. She is on prophylactic Lovenox. I will not work this up further at this point. 4. Anemia: Stable. 5. Hypertension: Well controlled. She is getting her home triamterene/hydrochlorothiazide. Thank you for involving Hospital Medicine in the care of this patient. We will continue to follow w mateusz you. /[id number]/MODL
[2016-11-16] MEDS: POLYETHYLENE GLYCOL 3350 17 GM PKT PO SCH ×4 (01:15→21:57)
[2016-11-16] MEDS: ACETAMINOPHEN 500 MG TAB PO SCH ×4 (03:00→21:57)
[2016-11-16] MEDS: METHOCARBAMOL 750 MG TAB PO PRN ×2 (03:45→12:27)
[2016-11-16 05:11] LABS: HEMATOCRIT 34.8 % (38.0-47.0); HEMOGLOBIN 10.8 g/dL (12.6-16.3); MEAN CELL HEMOGLOBIN 26.3 pg (27.9-34.1); MEAN CELL VOLUME 84.7 fL (81.5-99.8); RED BLOOD CELL COUNT 4.11 10^6/uL (4.18-5.33); RED CELL DISTRIBUTION WIDTH 15.3 % (11.5-15.2)
[2016-11-16 05:26] LABS: ANION GAP 9 mEq/L (8-16); CALCIUM 9.4 mg/dL (8.5-10.4); CARBON DIOXIDE 33 mEq/l (22-31); CHLORIDE 90 mEq/L (97-110); CREATININE 0.5 mg/dL (0.6-1.0); GLOMERULAR FILTRATION RATE > 60; GLUCOSE 89 mg/dL (70-100); POTASSIUM 4.2 mEq/L (3.5-5.2); SODIUM 132 mEq/L (134-144)
[2016-11-16] MEDS: ENOXAPARIN 40 MG/0.4 ML SYR SC SCH (08:17)
[2016-11-16] MEDS: PREGABALIN 75 MG CAP PO SCH ×2 (08:17→21:56)
[2016-11-16] MEDS: LORazepam 1 MG TAB PO PRN ×3 (08:17→21:57)
[2016-11-16] MEDS: TRIAMTERENE/HCTZ 37.5/25 1 EACH TAB PO SCH (08:17)
[2016-11-16] MEDS: oxyCODONE IR 5 MG TAB PO PRN ×4 (08:17→21:57)
[2016-11-16] MEDS: FAMOTIDINE 20 MG TAB PO SCH ×2 (08:17→21:57)
[2016-11-16] MEDS: SENNOSIDES/DOCUSATE SODIUM TAB PO SCH ×2 (08:25→21:57)
--- NOTE | 2016-11-16 08:32 | SOAPPROG ---
SOAP Progress Note Assessment/Plan: Assessment: 66 yo F POD #6 C7-T3 fusion Plan: neuro: stable, continued encephalopathy, IM helping with medical issues pneumonia, on levaquin per IM soft collar PT/OT scd/deniz/lovenox for dvt prophylaxis patient is refusing inpatient rehab, likely to need C services please call with neuro changes patient was seen by Dr Paris 11/10/16 20:36 11/16/16 08:29 Subjective: continued neck pain, no arm pain. no weakness. Objective: Vital Signs Temp Pulse Resp BP Pulse Ox 37.0 C 107 H 19 124/91 H 96 11/16/16 04:00 11/16/16 04:00 11/16/16 04:00 11/16/16 08:17 11/16/16 04:00 Laboratory Results 11/16/16 04:31 11/16/16 04:31 11/15/16 11/16/16 11/17/16 05:59 05:59 05:59 Intake Total 200 450 Output Total 1000 Balance -800 450 Awake, alert PERRL, no facial droop 5/5 except right inside sales executive/intrinsics 4/5, right leg globally 4/5 + light touch C/D/I ICD10 Worksheet Patient Problems: Problems Problem Status Onset Cervical stenosis of spinal canal Acute Cervical vertebral fusion Acute Chest pain Acute Chronic Disease Mgmt/Transitional Care Acute Fall Acute Hypoxia Acute Left-sided weakness Acute Status migrainosus Acute
--- NOTE | 2016-11-16 11:51 | HOSPPROG ---
Hospitalist Progress Note Assessment/Plan: patient is a 66-year-old female who is status post C7 through T3 fusion. She had some issues with confusion in the postop recovery time. Today is my 1st encounter with the patient. Chart reviewed. * Acute encephalopathy this could be multi factorial, possibly due to pneumonia, hyponatremia and being constipated she is much improved during my evaluation except for the pain in her neck area * right lower lobe pneumonia Levaquin * hypoxemia possibly related to a COPD exacerbation triggered by the pneumonia nebulizers ordered * history of a DVT on Lovenox prophylaxis treatment * anemia follow *s/p C7 through T3 fusion pain is an issue would recommend stopping long acting MS Contin (dc'd) due to confusion and cont prn oxy * hypertension 132/79 *DVT prophylaxis: LMWH Subjective: Carolee is c/o neck pain after walking with PT. Objective: Vital Signs Temp Pulse Resp BP Pulse Ox 36.8 C 111 H 16 132/79 H 94 11/16/16 11:28 11/16/16 11:28 11/16/16 11:28 11/16/16 11:28 11/16/16 11:28 Laboratory Results 11/16/16 04:31 11/16/16 04:31 11/15/16 11/16/16 11/17/16 05:59 05:59 05:59 Intake Total 200 450 Output Total 1000 Balance -800 450 - Physical Exam Constitutional: uncomfortable, No not in pain Eyes: PERRL Ears, Nose, Mouth, Throat: hearing normal, other (collar in place) Cardiovascular: regular rate and rhythym Respiratory: no respiratory distress, reduced air movement Skin: warm Musculoskeletal: generalized weakness Neurologic: AAOx3 Psychiatric: interacting appropriately ICD10 Worksheet Patient Problems: Problems Problem Status Onset Cervical stenosis of spinal canal Acute Cervical vertebral fusion Acute Chest pain Acute Chronic Disease Mgmt/Transitional Care Acute Fall Acute Hypoxia Acute Left-sided weakness Acute Status migrainosus Acute
[2016-11-17] MEDS: ACETAMINOPHEN 500 MG TAB PO SCH ×3 (05:53→21:13)
[2016-11-17] MEDS: FAMOTIDINE 20 MG TAB PO SCH ×2 (08:10→21:13)
[2016-11-17] MEDS: TRIAMTERENE/HCTZ 37.5/25 1 EACH TAB PO SCH (08:10)
[2016-11-17] MEDS: ENOXAPARIN 40 MG/0.4 ML SYR SC SCH (08:10)
[2016-11-17] MEDS: POLYETHYLENE GLYCOL 3350 17 GM PKT PO SCH (08:11)
[2016-11-17] MEDS: PREGABALIN 75 MG CAP PO SCH ×2 (08:11→21:13)
[2016-11-17] MEDS: METHOCARBAMOL 750 MG TAB PO PRN ×2 (08:16→13:25)
[2016-11-17] MEDS: oxyCODONE IR 5 MG TAB PO PRN ×4 (08:16→21:12)
[2016-11-17] MEDS: SENNOSIDES/DOCUSATE SODIUM TAB PO SCH ×2 (08:17→21:14)
--- NOTE | 2016-11-17 08:52 | HOSPPROG ---
Hospitalist Progress Note Assessment/Plan: *s/p C7 through T3 fusion doing well today care plans revwd with Dr Whyte OK to discharge when medically OK will do home PT/OT, declines SNF * Acute encephalopathy resolving * right lower lobe pneumonia Levaquin changed to PO nebs * hypoxemia possibly related to a COPD exacerbation triggered by the pneumonia nebs may need home O2 * history of a DVT Lovenox prophylaxis * anemia stable * hypertension stable *DVT prophylaxis: LMWH DISPO- possible dc home tomorrow if resp stable and otherwise OK, with home services Subjective: Feeling better except cough. No n/v/d. Wants to go home, no SNF. Objective: Vital Signs Temp Pulse Resp BP Pulse Ox 97.4 F 79 18 130/74 H 99 11/17/16 07:01 11/17/16 07:01 11/17/16 07:01 11/17/16 07:01 11/17/16 07:01 Laboratory Results 11/16/16 04:31 11/16/16 04:31 11/15/16 11/16/16 11/17/16 11:59 11:59 11:59 Intake Total 200 450 Output Total 300 Balance -100 450 - Time Spent With Patient Time Spent with Patient: greater than 25 minutes Time Spent with Patient: Greater than 25 minutes spent on this patients care, greater than 50% of time spent counseling, educating, and coordinating care regarding the above mentioned plan. - Pending Discharge Pending Discharge Within 48 Hours: Yes Pending Discharge Date: 11/19/16 Pending Discharge Time: 11:00 - Physical Exam Constitutional: no apparent distress, appears nourished, not in pain Eyes: anicteric sclera, EOMI Ears, Nose, Mouth, Throat: moist mucous membranes, hearing normal, other (in neck brace) Cardiovascular: regular rate and rhythym, no murmur, rub, or gallop Respiratory: no respiratory distress, reduced air movement, other (decreased BS throughout) Gastrointestinal: normoactive bowel sounds, soft, non-tender abdomen, no palpable masses Skin: warm Psychiatric: interacting appropriately, not anxious, not encephalopathic, thought process linear ICD10 Worksheet Patient Problems: Problems Problem Status Onset Cervical stenosis of spinal canal Acute Cervical vertebral fusion Acute Chest pain Acute Chronic Disease Mgmt/Transitional Care Acute Fall Acute Hypoxia Acute Left-sided weakness Acute Status migrainosus Acute
[2016-11-17 09:42] LABS: % IMMATURE GRANULYOCYTES 1.1 % (0.0-1.1); ADD DIFF? NO; ADD MORPH? NO; ADD SCAN? NO; ATYPICAL LYMPHOCYTE FLAG 10 (0-99); FRAGMENT RBC FLAG 0 (0-99); HEMATOCRIT 37.3 % (38.0-47.0); HEMOGLOBIN 11.6 g/dL (12.6-16.3); LEFT SHIFT FLG 0 (0-99); LIPEMIA HEMOLYSIS FLAG 80 (0-99); MEAN CELL HEMOGLOBIN 26.9 pg (27.9-34.1); MEAN CELL HEMOGLOBIN CONCENTR. 31.1 g/dL (32.4-36.7); MEAN CELL VOLUME 86.3 fL (81.5-99.8); MEAN PLATELET VOLUME 10.2 fL (8.7-11.7); PLATELET CLUMPS FLAG 0 (0-99); PLATELET COUNT 360 10^3/uL (150-400); RED BLOOD CELL COUNT 4.32 10^6/uL (4.18-5.33); RED CELL DISTRIBUTION WIDTH 15.6 % (11.5-15.2)
[2016-11-17 10:01] LABS: ANION GAP 15 mEq/L (8-16); CARBON DIOXIDE 29 mEq/l (22-31); CHLORIDE 93 mEq/L (97-110); CREATININE 0.7 mg/dL (0.6-1.0); GLOMERULAR FILTRATION RATE > 60; GLUCOSE 115 mg/dL (70-100); POTASSIUM 4.2 mEq/L (3.5-5.2); SODIUM 137 mEq/L (134-144)
--- NOTE | 2016-11-17 10:28 | SOAPPROG ---
SOAP Progress Note Assessment/Plan: Assessment: 66 yo F POD #7 C7-T3 fusion Plan: neuro: stable, encaphalopathy improved, IM helping with medical issues pneumonia, on levaquin per IM soft collar PT/OT scd/deniz/lovenox for dvt prophylaxis patient is refusing inpatient rehab, likely to need [facility] services please call with neuro changes discharge when cleared by IM patient was seen by Dr Paris 11/10/16 20:36 11/16/16 08:29 11/17/16 10:27 Subjective: continued neck pain, headaches, no arm pain or weakness. Objective: Vital Signs Temp Pulse Resp BP Pulse Ox 36.3 C 79 18 130/74 H 99 11/17/16 07:01 11/17/16 07:01 11/17/16 07:01 11/17/16 07:01 11/17/16 07:01 Laboratory Results 11/17/16 09:30 11/17/16 09:30 11/16/16 11/17/16 11/18/16 05:59 05:59 05:59 Intake Total 450 Balance 450 AAOX4, +FC PERRL, EOMI, no facial droop 5/5 except right intrinisics/electric blasting cap assembler 4/5, right leg globally 4/5 + light touch C/D/I ICD10 Worksheet Patient Problems: Problems Problem Status Onset Cervical stenosis of spinal canal Acute Cervical vertebral fusion Acute Chest pain Acute Chronic Disease [facility]/Transitional Care Acute Fall Acute Hypoxia Acute Left-sided weakness Acute Status migrainosus Acute
[2016-11-17] MEDS ORDERED: POLYETHYLENE GLYCOL 3350 17 GM PKT PO PRN (14:32)
[2016-11-17] MEDS: ONDANSETRON 4 MG/2 ML VIAL IVP PRN ×2 (15:02→21:45)
[2016-11-17] MEDS: IPRATROPIUM/ALBUTEROL 3 ML DEYVIAL IH SCH ×2 (16:13→21:18)
[2016-11-17] MEDS: LORazepam 1 MG TAB PO PRN (21:13)
[2016-11-18] MEDS: oxyCODONE IR 5 MG TAB PO PRN ×4 (00:09→20:17)
[2016-11-18] MEDS: ONDANSETRON DISINTEGRATING 4 MG TAB PO PRN ×2 (00:10→21:18)
[2016-11-18] MEDS: METHOCARBAMOL 750 MG TAB PO PRN ×3 (03:33→18:23)
[2016-11-18] MEDS: ACETAMINOPHEN 500 MG TAB PO SCH ×3 (03:45→20:21)
[2016-11-18 04:50] LABS: % IMMATURE GRANULYOCYTES 1.9 % (0.0-1.1); ABSOLUTE IMMATURE GRANULOCYTES 0.16 10^3/uL (0.00-0.10); ADD DIFF? NO; ADD MORPH? NO; ADD SCAN? NO; ATYPICAL LYMPHOCYTE FLAG 10 (0-99); FRAGMENT RBC FLAG 0 (0-99); HEMATOCRIT 34.7 % (38.0-47.0); HEMOGLOBIN 10.6 g/dL (12.6-16.3); LEFT SHIFT FLG 10 (0-99); LIPEMIA HEMOLYSIS FLAG 80 (0-99); MEAN CELL HEMOGLOBIN 26.4 pg (27.9-34.1); MEAN CELL HEMOGLOBIN CONCENTR. 30.5 g/dL (32.4-36.7); MEAN CELL VOLUME 86.3 fL (81.5-99.8); MEAN PLATELET VOLUME 10.1 fL (8.7-11.7); PLATELET CLUMPS FLAG 10 (0-99); PLATELET COUNT 333 10^3/uL (150-400); RED BLOOD CELL COUNT 4.02 10^6/uL (4.18-5.33); RED CELL DISTRIBUTION WIDTH 15.7 % (11.5-15.2)
[2016-11-18 05:06] LABS: ANION GAP 9 mEq/L (8-16); CALCIUM 9.3 mg/dL (8.5-10.4); CARBON DIOXIDE 32 mEq/l (22-31); CHLORIDE 92 mEq/L (97-110); CREATININE 0.7 mg/dL (0.6-1.0); GLOMERULAR FILTRATION RATE > 60; GLUCOSE 92 mg/dL (70-100); POTASSIUM 4.7 mEq/L (3.5-5.2); SODIUM 133 mEq/L (134-144)
[2016-11-18] MEDS: IPRATROPIUM/ALBUTEROL 3 ML DEYVIAL IH SCH ×4 (05:34→21:42)
[2016-11-18] MEDS: PREGABALIN 75 MG CAP PO SCH ×2 (08:06→20:17)
[2016-11-18] MEDS: TRIAMTERENE/HCTZ 37.5/25 1 EACH TAB PO SCH (08:06)
[2016-11-18] MEDS: FAMOTIDINE 20 MG TAB PO SCH ×2 (08:06→20:21)
[2016-11-18] MEDS: ENOXAPARIN 40 MG/0.4 ML SYR SC SCH (08:06)
[2016-11-18] MEDS: SENNOSIDES/DOCUSATE SODIUM TAB PO SCH ×2 (08:06→20:21)
[2016-11-18] MEDS: LORazepam 1 MG TAB PO PRN ×2 (08:06→18:23)
--- NOTE | 2016-11-18 08:40 | SOAPPROG ---
SOAP Progress Note Assessment/Plan: Assessment: 66 yo F POD #8 C7-T3 fusion Plan: neuro: stable, encaphalopathy improved, IM helping with medical issues pneumonia, on levaquin per IM soft collar PT/OT scd/deniz/lovenox for dvt prophylaxis patient is refusing inpatient rehab, likely to need HHC services please call with neuro changes discharge when cleared by IM Subjective: asleep, wakes easily. Doing OK this AM with ongoing incisional discomfort denies new numbness, tingling or weakness Objective: Vital Signs Temp Pulse Resp BP Pulse Ox 36.8 C 92 16 136/78 H 96 11/17/16 23:55 11/18/16 05:36 11/18/16 05:36 11/18/16 08:06 11/18/16 05:36 Laboratory Results 11/18/16 04:25 11/18/16 04:25 11/17/16 11/18/16 11/19/16 05:59 05:59 05:59 Intake Total 160 Output Total 300 Balance -140 NEURO: HORVATH, sens +LT Follows commands oriented x4 Dressing: CDI. [place] intact ICD10 Worksheet Patient Problems: Problems Problem Status Onset Cervical stenosis of spinal canal Acute Cervical vertebral fusion Acute Chest pain Acute Chronic Disease Mgmt/Transitional Care Acute Fall Acute Hypoxia Acute Left-sided weakness Acute Status migrainosus Acute
--- NOTE | 2016-11-18 13:26 | HOSPPROG ---
Hospitalist Progress Note Assessment/Plan: patient is a 66-year-old female who is status post C7 through T3 fusion. She had some issues with confusion in the postop recovery time. Today is my 1st encounter with the patient. Chart reviewed. *s/p C7 through T3 fusion doing well today OK to discharge from medicine standpoint will do home PT/OT, declines SNF * Acute encephalopathy resolving * right lower lobe pneumonia Levaquin PO nebs * hypoxemia possibly related to a COPD exacerbation triggered by the pneumonia nebs needs home O2, reviewed with pt * history of a DVT Lovenox prophylaxis will need continued treatment * anemia stable * hypertension stable *DVT prophylaxis: LMWH DISPO- DC home per neurosurgery pt refusing SNF would rec HHC Subjective: Up in the chair. Feeling ok. Having some pain. Eating. Objective: Vital Signs Temp Pulse Resp BP Pulse Ox 37.0 C 93 18 136/78 H 96 11/18/16 08:00 11/18/16 08:00 11/18/16 08:00 11/18/16 08:06 11/18/16 08:00 Laboratory Results 11/18/16 04:25 11/18/16 04:25 11/17/16 11/18/16 11/19/16 05:59 05:59 05:59 Intake Total 160 Output Total 300 Balance -140 - Physical Exam Constitutional: appears nourished, chronically ill appearing, uncomfortable Eyes: PERRL, anicteric sclera, EOMI Ears, Nose, Mouth, Throat: moist mucous membranes, hearing normal, ears appear normal Cardiovascular: tachycardia, No JVD, No edema Respiratory: no respiratory distress, no rales or rhonchi, reduced air movement Gastrointestinal: normoactive bowel sounds, No tenderness, No ascites Skin: warm, normal color, No mottled Musculoskeletal: normal joint ROM, no joint effusions, generalized weakness Psychiatric: not anxious, not encephalopathic, poor insight, poor judgement, poor memory ICD10 Worksheet Patient Problems: Problems Problem Status Onset Cervical stenosis of spinal canal Acute Status migrainosus Acute Left-sided weakness Acute Chest pain Acute Hypoxia Acute Fall Acute Chronic Disease Mgmt/Transitional Care Acute Cervical vertebral fusion Acute
[2016-11-19] MEDS: ACETAMINOPHEN 500 MG TAB PO SCH ×3 (04:01→20:16)
[2016-11-19] MEDS: METHOCARBAMOL 750 MG TAB PO PRN ×3 (05:56→15:22)
[2016-11-19] MEDS: oxyCODONE IR 5 MG TAB PO PRN ×4 (05:56→20:16)
[2016-11-19] MEDS: LORazepam 1 MG TAB PO PRN ×2 (05:57)
[2016-11-19] MEDS: IPRATROPIUM/ALBUTEROL 3 ML DEYVIAL IH SCH ×4 (06:03→21:27)
--- NOTE | 2016-11-19 08:48 | SOAPPROG ---
SOAP Progress Note Assessment/Plan: Assessment: 66 yo F POD #9 C7-T3 fusion Plan: neuro: stable, encaphalopathy improved, IM helping with medical issues pneumonia, on levaquin per IM soft collar in place, pain reasonably well controlled PT/OT scd/deniz/lovenox for dvt prophylaxis she twisted the right foot while ambulating last night and now says she cannot bear weight, will check foot xray patient is refusing inpatient rehab, likely to need [facility] services and could d/c when her sons are home on Monday please call with neuro changes discharge when cleared by IM 11/19/16 08:46 Subjective: complaints of right foot pain Objective: Vital Signs Temp Pulse Resp BP Pulse Ox 36.8 C 90 18 130/74 H 95 11/19/16 08:00 11/19/16 08:00 11/19/16 08:00 11/19/16 08:00 11/19/16 08:00 Laboratory Results 11/18/16 04:25 11/18/16 04:25 11/18/16 11/19/16 11/20/16 05:59 05:59 05:59 Intake Total 160 Output Total 300 Balance -140 AAOx3, full strength/sensation, collar in place, wound c/d/i, pain with palpation of medial right foot, no gross deformity - Pending Discharge Pending Discharge Within 24 Hours: No Pending Discharge Within 48 Hours: Yes Pending Discharge Date: 11/21/16 Pending Discharge Time: 11:00 ICD10 Worksheet Patient Problems: Problems Problem Status Onset Cervical stenosis of spinal canal Acute Cervical vertebral fusion Acute Chest pain Acute Chronic Disease Mgmt/Transitional Care Acute Fall Acute Hypoxia Acute Left-sided weakness Acute Status migrainosus Acute
[2016-11-19] MEDS: ENOXAPARIN 40 MG/0.4 ML SYR SC SCH (10:07)
[2016-11-19] MEDS: TRIAMTERENE/HCTZ 37.5/25 1 EACH TAB PO SCH (10:08)
[2016-11-19] MEDS: PREGABALIN 75 MG CAP PO SCH ×2 (10:08→20:16)
[2016-11-19] MEDS: FAMOTIDINE 20 MG TAB PO SCH ×2 (10:08→20:16)
[2016-11-19] MEDS: SENNOSIDES/DOCUSATE SODIUM TAB PO SCH ×2 (10:09→20:15)
--- NOTE | 2016-11-19 10:27 | HOSPPROG ---
Hospitalist Progress Note Assessment/Plan: patient is a 66-year-old female who is status post C7 through T3 fusion. She had some issues with confusion in the postop recovery time. *s/p C7 through T3 fusion doing well today OK to discharge from medicine standpoint will do home PT/OT, declines SNF * Acute encephalopathy resolving * right lower lobe pneumonia Levaquin PO nebs stable * hypoxemia possibly related to a COPD exacerbation triggered by the pneumonia nebs needs home O2, reviewed with pt * history of a DVT Lovenox prophylaxis will need continued treatment * anemia stable * hypertension stable *DVT prophylaxis: LMWH DISPO- DC home per neurosurgery pt refusing SNF would rec HHC ready for DC from medicine standpoint Subjective: Up in bed. Eating breakfast. No specific issues. Objective: Vital Signs Temp Pulse Resp BP Pulse Ox 36.8 C 90 18 130/74 H 95 11/19/16 08:00 11/19/16 08:00 11/19/16 08:00 11/19/16 08:00 11/19/16 08:00 Laboratory Results 11/18/16 04:25 11/18/16 04:25 11/18/16 11/19/16 11/20/16 05:59 05:59 05:59 Intake Total 160 Output Total 300 Balance -140 - Physical Exam Constitutional: not in pain, chronically ill appearing Eyes: PERRL, anicteric sclera Ears, Nose, Mouth, Throat: moist mucous membranes, hearing normal Cardiovascular: No JVD, No edema Respiratory: no respiratory distress, reduced air movement Gastrointestinal: No tenderness, No ascites Skin: warm, normal color Musculoskeletal: pain with ROM, generalized weakness Psychiatric: not anxious, poor insight, poor judgement, poor memory ICD10 Worksheet Patient Problems: Problems Problem Status Onset Cervical stenosis of spinal canal Acute Status migrainosus Acute Left-sided weakness Acute Chest pain Acute Hypoxia Acute Fall Acute Chronic Disease Mgmt/Transitional Care Acute Cervical vertebral fusion Acute
[2016-11-19] MEDS: DIAZEPAM 5 MG TAB PO PRN (20:16)
[2016-11-20] MEDS: oxyCODONE IR 5 MG TAB PO PRN ×6 (00:37→21:06)
[2016-11-20] MEDS: METHOCARBAMOL 750 MG TAB PO PRN ×2 (00:37→05:18)
[2016-11-20] MEDS: ACETAMINOPHEN 500 MG TAB PO SCH ×3 (05:18→21:07)
[2016-11-20] MEDS: IPRATROPIUM/ALBUTEROL 3 ML DEYVIAL IH SCH ×4 (06:04→22:12)
--- NOTE | 2016-11-20 08:31 | SOAPPROG ---
SOAP Progress Note Assessment/Plan: Assessment: 66 yo F POD #10 C7-T3 fusion Plan: neuro: stable, encaphalopathy improved, IM helping with medical issues pneumonia, on levaquin per IM soft collar in place, pain reasonably well controlled PT/OT scd/deniz/lovenox for dvt prophylaxis right foot pain - xrays negative, suspect plantar fascitis, hopefully PT/OT will help patient is refusing inpatient rehab, likely to need [facility] services and could d/c when her sons are home on Monday please call with neuro changes 11/19/16 08:46 11/20/16 08:30 Subjective: no new issues, awaiting discharge when her sons are home Objective: Vital Signs Temp Pulse Resp BP Pulse Ox 36.9 C 89 18 98/82 H 89 L 11/20/16 08:00 11/20/16 08:00 11/20/16 08:00 11/20/16 08:00 11/20/16 08:00 Laboratory Results 11/18/16 04:25 11/18/16 04:25 11/19/16 11/20/16 11/21/16 05:59 05:59 05:59 Output Total 350 Balance -350 AAOx3, full strength/sensation, no drift, dressing c/d/i - Pending Discharge Pending Discharge Within 24 Hours: Yes Pending Discharge Date: 11/21/16 Pending Discharge Time: 11:00 ICD10 Worksheet Patient Problems: Problems Problem Status Onset Cervical stenosis of spinal canal Acute Cervical vertebral fusion Acute Chest pain Acute Chronic Disease [facility]/Transitional Care Acute Fall Acute Hypoxia Acute Left-sided weakness Acute Status migrainosus Acute
[2016-11-20] MEDS: PREGABALIN 75 MG CAP PO SCH ×2 (09:36→21:06)
[2016-11-20] MEDS: FAMOTIDINE 20 MG TAB PO SCH ×2 (09:37→21:06)
[2016-11-20] MEDS: SENNOSIDES/DOCUSATE SODIUM TAB PO SCH ×2 (09:37→21:06)
[2016-11-20] MEDS: TRIAMTERENE/HCTZ 37.5/25 1 EACH TAB PO SCH (09:38)
[2016-11-20] MEDS: ENOXAPARIN 40 MG/0.4 ML SYR SC SCH (09:38)
--- NOTE | 2016-11-20 10:43 | HOSPPROG ---
Hospitalist Progress Note Assessment/Plan: patient is a 66-year-old female who is status post C7 through T3 fusion. She had some issues with confusion in the postop recovery time. *s/p C7 through T3 fusion doing well today OK to discharge from medicine standpoint will do home PT/OT, declines SNF * Acute encephalopathy resolved *Right foot pain acute, xray negative D/W PT, ordered walking boot. rec SNF * right lower lobe pneumonia Levaquin PO through 11/21/16 nebs stable * hypoxemia possibly related to a COPD exacerbation triggered by the pneumonia nebs needs home O2, reviewed with pt tobacco cessation education given * history of a DVT Lovenox prophylaxis will need continued treatment * anemia stable * hypertension stable *DVT prophylaxis: LMWH DISPO- DC home per neurosurgery pt refusing SNF would rec HHC ready for DC from medicine standpoint Subjective: Up in bed. No complaints. Objective: Vital Signs Temp Pulse Resp BP Pulse Ox 36.9 C 89 18 113/68 89 L 11/20/16 08:00 11/20/16 08:00 11/20/16 08:00 11/20/16 09:38 11/20/16 08:00 Laboratory Results 11/18/16 04:25 11/18/16 04:25 11/19/16 11/20/16 11/21/16 05:59 05:59 05:59 Output Total 350 Balance -350 - Physical Exam Constitutional: appears nourished, chronically ill appearing Eyes: PERRL, anicteric sclera Ears, Nose, Mouth, Throat: moist mucous membranes, hearing normal Cardiovascular: No JVD, No edema Respiratory: no respiratory distress, reduced air movement Gastrointestinal: No tenderness, No ascites Skin: warm, normal color Musculoskeletal: pain with ROM, muscular tenderness, generalized weakness Psychiatric: not anxious, not encephalopathic, poor insight, poor judgement ICD10 Worksheet Patient Problems: Problems Problem Status Onset Cervical stenosis of spinal canal Acute Status migrainosus Acute Left-sided weakness Acute Chest pain Acute Hypoxia Acute Fall Acute Chronic Disease Mgmt/Transitional Care Acute Cervical vertebral fusion Acute
[2016-11-20] MEDS: LORazepam 1 MG TAB PO PRN (21:06)
[2016-11-20] MEDS: DIAZEPAM 5 MG TAB PO PRN (21:07)
[2016-11-21] MEDS: METHOCARBAMOL 750 MG TAB PO PRN ×2 (02:54→14:13)
[2016-11-21] MEDS: oxyCODONE IR 5 MG TAB PO PRN ×4 (02:54→17:23)
[2016-11-21] MEDS: ACETAMINOPHEN 500 MG TAB PO SCH ×2 (05:43→08:01)
[2016-11-21] MEDS: IPRATROPIUM/ALBUTEROL 3 ML DEYVIAL IH SCH ×3 (06:10→16:33)
--- NOTE | 2016-11-21 07:42 | SOAPPROG ---
SOAP Progress Note Assessment/Plan: Assessment: 66 yo F POD #11 C7-T3 fusion Plan: neuro: stable, encaphalopathy improved, IM helping with medical issues pneumonia, on levaquin per IM foot pain, likely sprained, will get patient boot or ankle support soft collar PT/OT scd/deniz/lovenox for dvt prophylaxis patient is refusing inpatient rehab please call with neuro changes discharge home today patient was seen by Dr Paris 11/10/16 20:36 11/16/16 08:29 11/17/16 10:27 11/21/16 07:40 Subjective: continued neck pain, right foot pain, no leg weakness. Objective: Vital Signs Temp Pulse Resp BP Pulse Ox 36.8 C 109 H 19 142/72 H 92 11/20/16 23:53 11/20/16 23:53 11/20/16 23:53 11/20/16 23:53 11/20/16 23:53 Laboratory Results 11/18/16 04:25 11/18/16 04:25 11/20/16 11/21/16 11/22/16 05:59 05:59 05:59 Intake Total 600 Output Total 350 Balance -350 600 AAOX4, +FC PERRL, EOMI, no facial droop 5/5 except right intrinsics/product introduction manager 4/5 + light touch C/D/I ICD10 Worksheet Patient Problems: Problems Problem Status Onset Cervical stenosis of spinal canal Acute Cervical vertebral fusion Acute Chest pain Acute Chronic Disease Mgmt/Transitional Care Acute Fall Acute Hypoxia Acute Left-sided weakness Acute Status migrainosus Acute
[2016-11-21 08:55] VITALS: BP 145/70; RESP 18; TEMP 98.4
[2016-11-21] MEDS: SENNOSIDES/DOCUSATE SODIUM TAB PO SCH (09:24)
[2016-11-21] MEDS: PREGABALIN 75 MG CAP PO SCH (09:24)
[2016-11-21] MEDS: FAMOTIDINE 20 MG TAB PO SCH (09:24)
[2016-11-21] MEDS: ENOXAPARIN 40 MG/0.4 ML SYR SC SCH (09:26)
[2016-11-21] MEDS: TRIAMTERENE/HCTZ 37.5/25 1 EACH TAB PO SCH (09:26)
--- NOTE | 2016-11-21 12:59 | HOSPPROG ---
Hospitalist Progress Note Assessment/Plan: patient is a 66-year-old female who is status post C7 through T3 fusion. She had some issues with confusion in the postop recovery time. *s/p C7 through T3 fusion doing well today OK to discharge from medicine standpoint will do home PT/OT, declines SNF * Acute encephalopathy resolved *Right foot pain acute, xray negative D/W PT, ordered walking boot. rec SNF * right lower lobe pneumonia Levaquin PO through 11/21/16 nebs stable * hypoxemia possibly related to a COPD exacerbation triggered by the pneumonia nebs needs home O2, reviewed with pt tobacco cessation education given * history of a DVT Lovenox prophylaxis will need continued treatment * anemia stable * hypertension stable *DVT prophylaxis: LMWH DISPO- DC home per neurosurgery pt refusing SNF would rec HHC ready for DC from medicine standpoint Subjective: no complaints. Objective: Vital Signs Temp Pulse Resp BP Pulse Ox 36.9 C 100 18 145/70 H 89 L 11/21/16 08:00 11/21/16 08:00 11/21/16 08:00 11/21/16 09:26 11/21/16 08:00 Laboratory Results 11/18/16 04:25 11/18/16 04:25 11/20/16 11/21/16 11/22/16 05:59 05:59 05:59 Intake Total 600 Output Total 350 400 Balance -350 600 -400 - Physical Exam Constitutional: no apparent distress, not in pain Eyes: PERRL, anicteric sclera Ears, Nose, Mouth, Throat: moist mucous membranes, hearing normal Cardiovascular: No JVD, No edema Respiratory: no respiratory distress, reduced air movement Gastrointestinal: No tenderness, No ascites Skin: warm, normal color Musculoskeletal: pain with ROM, generalized weakness Psychiatric: not anxious, not encephalopathic, poor insight, poor judgement ICD10 Worksheet Patient Problems: Problems Problem Status Onset Cervical stenosis of spinal canal Acute Status migrainosus Acute Left-sided weakness Acute Chest pain Acute Hypoxia Acute Fall Acute Chronic Disease Mgmt/Transitional Care Acute Cervical vertebral fusion Acute
--- NOTE | 2016-11-21 16:17 | PDIAF ---
- Diagnosis Code Status: Full Code - Medication Management Discharge Medications: Medications to Continue on Transfer Triamterene/Hctz 37.5/25 [Maxzide-25 (*)] 1 tab PO DAILY 02/26/15 [Last Taken 12:00] Albuterol [Ventolin Hfa Inhaler] 2 puffs IH Q6 PRN 10/27/16 [Last Taken 07:00] Pregabalin [Lyrica 75mg (*)] 75 mg PO BID 10/27/16 [Last Taken 11/10/16 07:00] Diazepam [Valium 5 MG (*)] 5 mg PO Q8 PRN #0 tab 11/21/16 [Last Taken Unknown] Methocarbamol [Robaxin 750 mg (*)] 750 mg PO QID PRN #0 tab 11/21/16 [Last Taken Unknown] oxyCODONE IR [Oxycodone Ir (*)] 5 - 10 mg PO Q3H PRN #0 tab 11/21/16 [Last Taken Unknown] Discharge Medications: Refer to the Discharge Home Medication list for PRN reason. - Orders Services needed: Registered Nurse, Physical Therapy, Occupational Therapy Diet Recommendation: no restrictions on diet Diet Texture: Regular Texture Diet - Follow Up Care Current Providers and Referrals: DEJON GALEANA [Primary Care Provider] -
--- NOTE | 2016-11-21 16:19 | PDIAF ---
- Diagnosis Diagnosis: fusion Code Status: Full Code - Medication Management Discharge Medications: Medications to Continue on Transfer Triamterene/Hctz 37.5/25 [Maxzide-25 (*)] 1 tab PO DAILY 02/26/15 [Last Taken 12:00] Albuterol [Ventolin Hfa Inhaler] 2 puffs IH Q6 PRN 10/27/16 [Last Taken 07:00] Pregabalin [Lyrica 75mg (*)] 75 mg PO BID 10/27/16 [Last Taken 11/10/16 07:00] Diazepam [Valium 5 MG (*)] 5 mg PO Q8 PRN #0 tab 11/21/16 [Last Taken Unknown] Methocarbamol [Robaxin 750 mg (*)] 750 mg PO QID PRN #0 tab 11/21/16 [Last Taken Unknown] oxyCODONE IR [Oxycodone Ir (*)] 5 - 10 mg PO Q3H PRN #0 tab 11/21/16 [Last Taken Unknown] Discharge Medications: Refer to the Discharge Home Medication list for PRN reason. PICC Care - Routine: N/A - Orders Services needed: Registered Nurse, Physical Therapy, Occupational Therapy Diet Recommendation: no restrictions on diet Diet Texture: Regular Texture Diet - Follow Up Care Current Providers and Referrals: DEJON GALEANA [Primary Care Provider] -
[2016-11-21 16:36] VITALS: PULSE 106; O2SAT 92
[2016-11-21] MEDS: LORazepam 1 MG TAB PO PRN (17:31)
== END 2016-11-21 17:56 | DRG 459 ==
LOC: F3N 14:14 → F2N 22:30 → F3N 11-12 15:53
PROVIDERS: ADMIT Neurological Surgery; ATTEND Neurological Surgery
PROC: 0RG7071 Fusion of 2 to 7 Thoracic Vertebral Joints with Autologous Tissue Substitute, Posterior Approach, Posterior Column, Open Approach (ICD-10-PCS; principal; 2016-11-10 16:15)
PROC: 0RG1071 Fusion of Cervical Vertebral Joint with Autologous Tissue Substitute, Posterior Approach, Posterior Column, Open Approach (ICD-10-PCS; principal; 2016-11-10 16:15)
PROC: 01N80ZZ Release Thoracic Nerve, Open Approach (ICD-10-PCS; principal; 2016-11-10 16:15)
PROC: 0PH404Z Insertion of Internal Fixation Device into Thoracic Vertebra, Open Approach (ICD-10-PCS; principal; 2016-11-10 16:15)
PROC: 3E0U0GB Introduction of Recombinant Bone Morphogenetic Protein into Joints, Open Approach (ICD-10-PCS; principal; 2016-11-10 16:15)
PROC: 0RG4071 Fusion of Cervicothoracic Vertebral Joint with Autologous Tissue Substitute, Posterior Approach, Posterior Column, Open Approach (ICD-10-PCS; principal; 2016-11-10 16:15)
PROC: 0PH304Z Insertion of Internal Fixation Device into Cervical Vertebra, Open Approach (ICD-10-PCS; principal; 2016-11-10 16:15)
PROC: 02HV43Z Insertion of Infusion Device into Superior Vena Cava, Percutaneous Endoscopic Approach (ICD-10-PCS; 2016-11-11)
DX: M96.0 Pseudarthrosis after fusion or arthrodesis (principal); M47.12 Other spondylosis with myelopathy, cervical region; M48.04 Spinal stenosis, thoracic region; J18.9 Pneumonia, unspecified organism; G95.29 Other cord compression; G93.40 Encephalopathy, unspecified; R09.02 Hypoxemia; R07.89 Other chest pain; I95.9 Hypotension, unspecified; J44.9 Chronic obstructive pulmonary disease, unspecified; D53.9 Nutritional anemia, unspecified; I10 Essential (primary) hypertension; K21.9 Gastro-esophageal reflux disease without esophagitis; Z98.1 Arthrodesis status; F17.210 Nicotine dependence, cigarettes, uncomplicated; Z96.643 Presence of artificial hip joint, bilateral; Z96.653 Presence of artificial knee joint, bilateral; Z86.718 Personal history of other venous thrombosis and embolism
CPT/HCPCS: 97110-GO; 97116-GP; 97162-GP; 97165-GO; 97530-GP; C1713; C1751; G8978-GP-CJ; G8979-GP-CI; G8987-GO-CK; G8988-GO-CI; G8991-GO-CI; G8992-GO-CI; J0330; J0690; J1100; J1170; J1650; J1956; J2001; J2250; J2270; J2370; J2405; J2704; J3010; J7060; Q9967

== ENCOUNTER 2016-11-25 16:34 | Emergency (ER) | payer OTHER, MEDICARE ==
[2016-11-25] MEDS ORDERED: fentaNYL 100 MCG/2 ML INJ IVP ONE (17:14)
[2016-11-25] MEDS ORDERED: PROPOFOL 200 MG/20 ML VIAL IVP ONE (17:15)
--- NOTE | 2016-11-25 17:18 | EDPHY ---
H & P Stated Complaint: SUSPECTED DISLOCATION R HIP HPI/ROS: Chief Complaint: Right hip pain HPI: 66-year-old woman with a history of bilateral hip replacements, recent cervical spine surgery. Patient was in her rehab facility which she bent over to pick something up while sitting on the couch and she felt a pop in her right hip. This felt consistent with prior hip dislocations. Had immediate onset of pain. Has been unable to weightbear. EMS was called. Given her fentanyl intranasally and IV and also give her ketamine IV. No falls. Not hit her head. No loss of consciousness. ROS: 10 point Review of Systems is negative except as noted in the HPI. PMH: Bilateral hip replacements, spinal fusion Social History: No smoking, no alcohol, no recreational drug use Family History: non-contributory Physical Exam: Gen: Awake, Alert, No Distress HEENT: Nose: no rhinorrhea Eyes: PERRLA, EOMI Mouth: Moist mucosa Neck: Supple, no JVD Chest: nontender, lungs clear to auscultation Heart: S1, S2 normal, no murmur Abd: Soft, non-tender, no guarding Back: no CVA tenderness, no midline tenderness Ext: no edema, right hip is shortened and mildly internally rotated, 2+ DP pulses. Cap refills less than 3 seconds. Sensations intact. Skin: no rash Neuro: CN II-XII intact, Sensation grossly intact, Strength 5/5 in bilateral upper and lower extremities - Personal History Current Tetanus Diphtheria and Acellular Pertussis (TDAP): Yes Tetanus Vaccine Date: 2009 - Medical/Surgical History Hx Asthma: Yes Hx Chronic Respiratory Disease: Yes Hx Diabetes: No Hx Cardiac Disease: No Hx Renal Disease: No Hx Cirrhosis: No Hx Alcoholism: No Hx HIV/AIDS: No Hx Splenectomy or Spleen Trauma: No Other PMH: spinal fusion, left hip sx, neck fx C7-T1, bilat knee surgery, bilat hip surgery, bilat ankle surgery, Tia's, neck hardware removal 06/09 - Social History Smoking Status: Former smoker Constitutional: Initial Vital Signs Heart Rate 90 11/25/16 16:41 Respiratory Rate 17 11/25/16 16:41 Blood Pressure 126/105 H 11/25/16 16:41 O2 Sat (%) 96 11/25/16 16:41 O2 Delivery Mode [Procedural Room Air 4th] O2 Delivery Mode [Procedural Nasal Cannula 3rd] O2 Delivery Mode [Procedural Non-Rebreather Mask 2nd] O2 Delivery Mode [Procedural Non-Rebreather Mask 1st] O2 Delivery Mode Room Air O2 (L/minute) [Procedural 4th] 4 O2 (L/minute) [Procedural 3rd] 4 O2 (L/minute) [Procedural 2nd] 15 Allergies/Adverse Reactions: Penicillins Allergy (Severe, Verified 11/25/16 16:45) Dyspnea Sulfa (Sulfonamide Antibiotics) Allergy (Severe, Verified 11/25/16 16:45) Dyspnea Home Medications: Medication Instructions Recorded Triamterene/Hctz 37.5/25 1 tab PO DAILY 02/26/15 [Maxzide-25 (*)] Albuterol [Ventolin Hfa Inhaler] 2 puffs IH Q6 PRN 10/27/16 Pregabalin [Lyrica 75mg (*)] 75 mg PO BID 10/27/16 Diazepam [Valium 5 MG (*)] 5 mg PO Q8 PRN #0 tab 11/21/16 Methocarbamol [Robaxin 750 mg (*)] 750 mg PO QID PRN #0 tab 11/21/16 oxyCODONE IR [Oxycodone Ir (*)] 5 - 10 mg PO Q3H PRN #0 tab 11/21/16 Medical Decision Making - Diagnostics Imaging Results: Imaging Impressions Hip X-Ray 11/25/16 17:15 Impression: Dislocated right hip arthroplasty. Hip X-Ray 11/25/16 17:42 Impression: Interval reduction in right hip arthroplasty dislocation. Procedures: Procedure: Procedural sedation. A pre-sedation evaluation was completed on the patient at 1700. Patient is an appropriate candidate for procedural sedation. The risks of the sedation were discussed with the patient. A time out was completed. The patient was sedated with fentanyl, 100 mcg and propofol, 80 mg. The patient was monitored with continuous pulse oximetry and boiler coverer helper. There were no complications and no significant hypoxemia. I remained at the bedside for the sedation. The total time I spent in the procedural sedation was 20 minutes. Procedure: Dislocation reduction. The dislocation of the right hip prosthesis was reduced using counter traction technique without complications. Post reduction the patient's neurovascular exam is normal. Post reduction x-ray demonstrates reduction of the joint to the anatomic position. The procedure was performed by myself. ED Course/Re-evaluation: Patient placed in a post reduction splint. Uneventfully recovery. The x-ray showed the prosthesis in place. Patient be discharged with follow up with Orthopedics as needed. Patient has been accepted back to rehab facility. - Data Points Medications Given: Discontinued Medications Fentanyl (Sublimaze) 200 mcg IVP EDNOW ONE Stop: 11/25/16 17:15 Last Admin: 11/25/16 17:26 Dose: 100 mcg Propofol (Diprivan) 200 mg IVP EDNOW ONE Stop: 11/25/16 17:16 Last Admin: 11/25/16 17:38 Dose: 80 mg Departure - Departure Disposition: Home, Routine, Self-Care Clinical Impression: Hip dislocation, right Condition: Good Instructions: Hip Dislocation (ED) Additional Instructions: Follow up with Orthopedics in 4-5 days for re-evaluation. Make sure that you sleep with a pillow between her legs. Take care when bending over reaching to vegetable picker things to prevent another dislocation. Return to the emergency department for increasing pain, new injuries, fevers, chills, or any other concerns. Referrals: Patient,NotPresent [Primary Care Provider] - As per Instructions
[2016-11-25 18:14] VITALS: TEMP 97.9
[2016-11-25] MEDS ORDERED: OXYCODONE/APAP 5/325 TAB PO ONE (18:42)
[2016-11-25 20:58] VITALS: BP 128/77; PULSE 82; RESP 18; O2SAT 97
== END 2016-11-25 20:58 | disposition home or self-care (01) ==
LOC: EDUNIT#
PROC: 0SS9XZZ Reposition Right Hip Joint, External Approach (ICD-10-PCS; principal; 2016-11-25)
DX: T84.020A Dislocation of internal right hip prosthesis, initial encounter (principal); J45.909 Unspecified asthma, uncomplicated; Z87.891 Personal history of nicotine dependence; X58.XXXA Exposure to other specified factors, initial encounter; Y82.8 Other medical devices associated with adverse incidents
CPT/HCPCS: 27265; 73501; 99152; 99285; J2704; J3010

== ENCOUNTER 2017-01-17 16:15 | Inpatient (IN) | payer OTHER, MEDICARE ==
[2017-01-17] MEDS ORDERED: NS 500 ML IV ONE (16:22)
[2017-01-17 16:37] LABS: PLATELET COUNT 412 10^3/uL (150-400)
[2017-01-17 16:44] LABS: CREATINE KINASE 44 IU/L (0-156)
[2017-01-17] MEDS ORDERED: IOPAMIDOL (ISOVUE 370) 100 ML BTL IV ONE ×2 (16:47→18:49)
[2017-01-17 16:48] LABS: INR 1.02 (0.83-1.16); PROTIME(PATIENT) 13.3 SEC (12.0-15.0)
--- NOTE | 2017-01-17 16:52 | EDPHY ---
H & P Time Seen by Provider: 01/17/17 16:21 HPI/ROS: HPI Chest pain. 66-year-old female by ambulance from [facility]. She recently underwent right hip surgery. She also has a history of DVTs and pulmonary emboli. Because of her recent surgery she has not been on any anticoagulation. She complains of sudden onset chest pain with associated shortness of breath at 3:15 p.m.. She describes it as across her right upper chest with radiation into the left arm. She also has describes having some tingling in her right hand. ROS: Constitutional: No fever, no chills. No weakness. Eyes: No discharge. No changes in vision. ENT: No sore throat. No nasal congestion or rhinorrhea. Respiratory: No cough. As above. Cardiac: As above, no palpitations. Gastrointestinal: No abdominal pain, no vomiting, no diarrhea. Genitourinary: No hematuria. No dysuria or increased frequency with urination. Musculoskeletal: No back pain. No neck pain. No myalgias or arthralgias. Skin: No rashes. Neurological: No headache. No focal weakness or altered sensation. Past medical history: Includes spinal fusion, left hip surgery, cervical spine surgery, recent right hip surgery, bilateral hip surgery, ankle surgery, TIAs, pulmonary embolism, right leg DVT. Not currently on anticoagulation or antiplatelet agents. Social history: Nonsmoker. Here by herself. No alcohol. As above. Physical Exam: General Appearance: Alert, no distress. This patient is responding to questions appropriately and in full sentences. This patient appears well- hydrated and well-nourished. Eyes: Pupils equal and round no pallor or injection. No lid edema, erythema or injection. Respiratory: There are no retractions, lungs are clear to auscultation anteriorly with good air movement bilaterally. No tachypnea. Cardiovascular: Regular rate and rhythm. No murmur. Gastrointestinal: Abdomen is soft and nontender, no masses, bowel sounds normal. No focal tenderness at McBurney's point. No Cuevas sign. Neurological: Motor sensory function is grossly intact. Cranial nerves are normal. Skin: Warm and dry, no rashes. Musculoskeletal: Neck is supple and nontender. Extremities are symmetrical. No significant lower extremity edema. Right hip is in a brace. All joints range without pain or impingement except the right hip. Psychiatric: No agitation. No depression. Database: EKG: EKG time is 4:53 p.m.; EKG shows a narrow complex normal sinus rhythm with a ventricular rate of 71. The [place], QRS, QT intervals are within normal limits. There are no ST-T wave changes indicative of ischemic or injury pattern. No evidence of right heart strain. Interpreted by me. Imaging: Chest x-ray AP portable; extensive spinal hardware. No acute cardiopulmonary disease process noted. Interpreted by me. CT angiogram of chest: Negative for PE. Lungs are clear. Results were discussed with staff radiologist. Procedures: Emergency department course: IV placed. She was placed on a monitor. Vital signs reviewed and are normal. She was given Zofran for some nausea and 324 mg of chewed aspirin at her intermediate prior to arrival. At rest she currently denies any chest pain. EKG obtained and reviewed by myself. 5:40 p.m., patient re-evaluated. Resting comfortably at this time. She denies any significant chest discomfort now. Her D-dimer is elevated. She will be sent for CT angiogram of the chest to evaluate for pulmonary embolism. She requires sedation for this study. She will be given 50 mcg of IV fentanyl for this study in additional 50 mcg as needed. 7:20 p.m., patient currently an CT suite. Spoke with on-call hospitalist Dr. Smita Abreu. She has accepted the patient for admission. Will follow up with Dr. Smita Abreu regarding results of CT angiogram. 8:00 p.m., spoke with Dr. Smita Abreu. Discussed results of CT angiogram. Hospitalist will consider obtaining lower extremity ultrasounds evaluate for DVT. Differential Diagnosis: The differential diagnosis on this patient includes but is not limited to acute coronary syndrome, pulmonary embolism, pneumothorax, myocarditis, pericarditis. This represents a partial list of diagnoses considered. These considerations are based on history, physical exam, past history, reassessment and diagnostic testing. Smoking Status: Former smoker Constitutional: Initial Vital Signs Temperature (C) 36.8 C 01/17/17 16:39 Heart Rate 85 01/17/17 16:39 Respiratory Rate 20 01/17/17 16:39 Blood Pressure 113/72 01/17/17 16:39 O2 Sat (%) 98 01/17/17 16:39 O2 Delivery Mode Room Air Allergies/Adverse Reactions: Penicillins Allergy (Severe, Verified 11/25/16 16:45) Dyspnea Sulfa (Sulfonamide Antibiotics) Allergy (Severe, Verified 11/25/16 16:45) Dyspnea Home Medications: Medication Instructions Recorded Triamterene/Hctz 37.5/25 1 tab PO DAILY 02/26/15 [Maxzide-25 (*)] Albuterol [Ventolin Hfa Inhaler] 2 puffs IH Q6 PRN 10/27/16 Pregabalin [Lyrica 75mg (*)] 75 mg PO BID 10/27/16 Diazepam [Valium 5 MG (*)] 5 mg PO Q8 PRN #0 tab 11/21/16 Methocarbamol [Robaxin 750 mg (*)] 750 mg PO QID PRN #0 tab 11/21/16 oxyCODONE IR [Oxycodone Ir (*)] 5 - 10 mg PO Q3H PRN #0 tab 11/21/16 Medical Decision Making - Diagnostics Imaging Results: Imaging Impressions Chest X-Ray 01/17/17 16:55 Impression: 1. Extensive spinal instrumentation. 2. No acute cardiopulmonary features. - Data Points Laboratory Results: Laboratory Results 01/17/17 16:00 01/17/17 16:00 01/17/17 01/17/17 01/17/17 16:00 16:00 16:00 WBC 10.84 10^3/uL H 10^3/uL (3.80-9.50) RBC 4.79 10^6/uL 10^6/uL (4.18-5.33) Hgb 10.7 g/dL L g/dL (12.6-16.3) Hct 33.7 % L % (38.0-47.0) MCV 70.4 fL L fL (81.5-99.8) MCH 22.3 pg L pg (27.9-34.1) MCHC 31.8 g/dL L g/dL (32.4-36.7) RDW 17.4 % H % (11.5-15.2) Plt Count 412 10^3/uL H 10^3/uL (150-400) MPV 10.5 fL fL (8.7-11.7) Neut % (Auto) 69.7 % % (39.3-74.2) Lymph % (Auto) 20.7 % % (15.0-45.0) Lewis % (Auto) 7.7 % % (4.5-13.0) Eos % (Auto) 0.6 % % (0.6-7.6) Baso % (Auto) 0.7 % % (0.3-1.7) Nucleat RBC Rel Count 0.0 % % (0.0-0.2) Absolute Neuts (auto) 7.55 10^3/uL H 10^3/uL (1.70-6.50) Absolute Lymphs (auto) 2.24 10^3/uL 10^3/uL (1.00-3.00) Absolute Monos (auto) 0.84 10^3/uL H 10^3/uL (0.30-0.80) Absolute Eos (auto) 0.07 10^3/uL 10^3/uL (0.03-0.40) Absolute Basos (auto) 0.08 10^3/uL 10^3/uL (0.02-0.10) Absolute Nucleated RBC 0.00 10^3/uL 10^3/uL (0-0.01) Immature Gran % 0.6 % % (0.0-1.1) Immature Gran # 0.06 10^3/uL 10^3/uL (0.00-0.10) PT 13.3 SEC SEC (12.0-15.0) INR 1.02 (0.83-1.16) APTT 29.8 SEC SEC (23.0-38.0) D-Dimer 1.94 ug/mLFEU H ug/mLFEU (0.00-0.50) Sodium 137 mEq/L mEq/L (134-144) Potassium 4.3 mEq/L mEq/L (3.5-5.2) Chloride 99 mEq/L mEq/L (97-110) Carbon Dioxide 20 mEq/l L mEq/l (22-31) Anion Gap 18 mEq/L H mEq/L (8-16) BUN 23 mg/dL mg/dL (7-23) Creatinine 0.9 mg/dL mg/dL (0.6-1.0) Estimated GFR > 60 Glucose 107 mg/dL H mg/dL (70-100) Calcium 10.1 mg/dL mg/dL (8.5-10.4) Creatine Kinase 44 IU/L IU/L (0-156) CK-MB (CK-2) Fraction 0.99 ng/mL ng/mL (0.00-3.19) Troponin I < 0.012 ng/mL ng/mL (0.000-0.034) Medications Given: Discontinued Medications Fentanyl (Sublimaze) 50 mcg IVP EDNOW ONE Stop: 01/17/17 17:43 Last Admin: 01/17/17 19:46 Dose: 50 mcg Fentanyl (Sublimaze) 50 mcg IVP ONCE ONE Stop: 01/17/17 19:56 Last Admin: 01/17/17 19:00 Dose: 50 mcg Sodium Chloride (Ns) 500 mls @ 1,000 mls/hr IV EDNOW ONE PRN Reason: Protocol Stop: 01/17/17 16:51 Last Admin: 01/17/17 16:55 Dose: 500 mls Departure - Departure Disposition: [facility] Inpatient Acute Clinical Impression: Chest pain Condition: Fair
--- NOTE | 2017-01-17 16:56 | CPEKG ---
Heart Rate: 71 RR Interval: 845 P-R Interval: 200 QRSD Interval: 66 QT Interval: 368 QTC Interval: 400 P [place]: 43 QRS [place]: 1 T Wave [place]: 25 EKG Severity - NORMAL ECG - EKG Impression: SINUS RHYTHM Electronically Signed By: Shayna Boss 17-Jan-2017 20:36:44
[2017-01-17] MEDS ORDERED: fentaNYL 100 MCG/2 ML INJ IVP ONE ×2 (17:42→19:55)
[2017-01-17] MEDS: HYDROmorphONE/DILAUDID 1 MG/ML INJ IVP PRN (21:04)
[2017-01-17] MEDS: oxyCODONE IR 5 MG TAB PO PRN (23:12)
[2017-01-17] MEDS: METHOCARBAMOL 750 MG TAB PO PRN (23:13)
[2017-01-17] MEDS ORDERED: ACETAMINOPHEN 325 MG TAB PO PRN (23:16)
[2017-01-17] MEDS ORDERED: ONDANSETRON 4 MG/2 ML VIAL IVP PRN (23:16)
[2017-01-17] MEDS: PREGABALIN 75 MG CAP PO SCH ×2 (23:37→23:39)
--- NOTE | 2017-01-18 00:19 | GHP ---
[f rep st] HISTORY AND PHYSICAL DATE OF ADMISSION: 01/17/2017 CHIEF COMPLAINT: Chest pain. HISTORY: The patient is a 66-year-old female, currently at [facility], as an SNF while she recovers from her hip surgery. She was having chronic hip dislocations and had surgery at [facility] December 01 and has not been home since then. She woke up from surgery, and her entire right leg was weak and she could not walk and has not fully recovered with therapy. She is now light toe-touch weightbearing. This afternoon she developed chest pain of sudden onset at 3:15 this afternoon with associated shortness of breath. It hit her 10/10 out of the blue, and she could not catch her breath. It radiated to her left elbow and across her entire front chest. It is better now and only minimal. She also complains of bilateral leg pain. PAST MEDICAL HISTORY: 1. COPD. 2. Chronic head and neck pain. 3. DVT and PE. 4. Hypertension. PAST SURGICAL HISTORY: Cervical fusion and appendectomy. MEDICATIONS: Please see computer record for full detailed list. ALLERGIES: Penicillin and sulfa. SOCIAL HISTORY: She quit smoking 3 months ago. No alcohol. She normally lives at home with her son. She is currently [facility] for rehabilitation. She states this was a mixup, and she was supposed to go to [facility] and the ambulance brought her to the wrong rehab and she is dissatisfied. REVIEW OF SYSTEMS: Complete review of systems obtained. Review of systems is negative regarding constitutional, HEENT, GI, pulmonary, cardiovascular, , hematology, skin, musculoskeletal, endocrine, psych, except for positives and negatives as noted in HPI. FAMILY HISTORY: Reviewed and noncontributory to presenting complaint. PHYSICAL EXAMINATION: GENERAL: Well-developed, well-nourished female, in no distress. VITAL SIGNS: Temperature 36.6, pulse 77, blood pressure 126/52, saturating 98% on room air. EYES: Normal conjunctivae. Pupils are equal, round, reactive to light. ENT: Normal ears and nose. Hearing intact. Normal lips and teeth. Oropharynx moist. NECK: Trachea midline. No thyromegaly. CHEST: Normal respiratory effort. LUNGS: Clear to auscultation bilaterally. CARDIOVASCULAR: Regular rate and rhythm. No murmur. No lower extremity edema. ABDOMEN: Soft. Nontender. No hepatosplenomegaly. SKIN: Warm, dry, intact. No rash. MUSCULOSKELETAL: No cyanosis or clubbing. Strength 5/5 upper and lower extremities. NEUROLOGIC: Cranial nerves intact. Normal sensation to light touch. PSYCH: Alert and oriented x3. Normal mood and affect. Normal judgment and insight. Normal memory. LABORATORY DATA: White count 10.84, hematocrit 33.7, platelets 412. Sodium 137 , potassium 4.13, chloride 99, bicarb 20, BUN 23, creatinine 0.9, glucose 107. Troponins negative. D-dimer is 1.94. IMAGING DATA: Chest x-ray is negative. EKG, reviewed by me, my personal interpretation is normal sinus rhythm. No ST-T wave changes. CTA of the chest shows no. ASSESSMENT AND PLAN: 1. Chest pain. Need rule out ischemia. Will do this with serial troponins and EKGs. If they remain negative, will order a Lexiscan stress test for morning. 2. 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 Her CTA is negative. Will check bilateral lower extremity ultrasounds to rule out deep vein thrombosis as she is at high risk with her recent hip surgery and immobility. 3. Right hip surgery. She remains light touch weightbearing. Will consult PT/ OT. Will consult Case Management regarding alternative options to [facility]. 4. Chronic obstructive pulmonary disease. She recently quit smoking, which was encouraged. COR STATUS: Full. ADMISSION STATUS: Obs. DEEP VEIN THROMBOSIS PROPHYLAXIS: Subcu Lovenox. /[id number]/MODL MTDD
[2017-01-18] MEDS: DIAZEPAM 5 MG TAB PO PRN (03:00)
[2017-01-18] MEDS: oxyCODONE IR 5 MG TAB PO PRN ×5 (03:00→23:59)
[2017-01-18 05:13] LABS: PLATELET COUNT 319 10^3/uL (150-400)
[2017-01-18] MEDS ORDERED: PREGABALIN 75 MG CAP PO SCH (09:00)
[2017-01-18] MEDS: PREGABALIN 75 MG CAP PO SCH ×2 (09:39→20:24)
[2017-01-18] MEDS: TRIAMTERENE/HCTZ 37.5/25 1 EACH TAB PO SCH (09:39)
[2017-01-18] MEDS: HYDROmorphONE/DILAUDID 1 MG/ML INJ IVP PRN (11:49)
[2017-01-18] MEDS ORDERED: NITROGLYCERIN 0.4 MG BTL SL PRN (12:02)
--- NOTE | 2017-01-18 12:19 | CPEKG ---
Heart Rate: 77 RR Interval: 779 P-R Interval: 208 QRSD Interval: 74 QT Interval: 380 QTC Interval: 431 P [place]: 52 QRS [place]: 19 T Wave [place]: 24 EKG Severity - OTHERWISE NORMAL ECG - EKG Impression: SINUS RHYTHM EKG Impression: Possible left atrial abnormality EKG Impression: No significant change from January 17, 2017 Electronically Signed By: Brant Abreu 18-Jan-2017 18:02:06
[2017-01-18] MEDS: ENOXAPARIN 40 MG/0.4 ML SYR SC SCH (12:21)
[2017-01-18] MEDS: LORazepam 2 MG/ML INJ IVP PRN (12:21)
--- NOTE | 2017-01-18 13:42 | HOSPPROG ---
Hospitalist Progress Note Assessment/Plan: New pt 66 yo female with hx of recent hip surgery admitted for acute onset of chest pain. W/u negative for PE or DVT. EKG c/w NSR. Trops x 3 negative. Still having significant intermittent chest pain 8-10/10, substernal, radiating to the the jaw, left side of neck. NO longer radiates to the left arm/hand. Could not do Lexican today due to inability to be on back. #acute chest pain, unclear etiology #Recent right hip surgery #COPD on RA #HTN #Former tobacco user Plan: Given her persistent chest pain with radiation to the neck and jaw, will reorder trop and EKG. Check TTE. Pending w/u will consider obtaining cards consult Subjective: still with chest pain. No SOB. NO palpiations. No leg swelling. Objective: Vital Signs Temp Pulse Resp BP Pulse Ox 36.8 C 97 18 110/59 L 97 01/18/17 12:00 01/18/17 12:00 01/18/17 12:00 01/18/17 12:00 01/18/17 12:00 Laboratory Results 01/18/17 03:47 01/17/17 01/18/17 01/19/17 05:59 05:59 05:59 Intake Total 1150 1000 Balance 1150 1000 PT 13.3 SEC (12.0-15.0) 01/17/17 16:00 INR 1.02 (0.83-1.16) 01/17/17 16:00 - Physical Exam Constitutional: no apparent distress, appears nourished Eyes: PERRL, EOMI Ears, Nose, Mouth, Throat: moist mucous membranes, hearing normal Cardiovascular: regular rate and rhythym, No irregularly irregular Respiratory: no respiratory distress, no rales or rhonchi, clear to auscultation Gastrointestinal: normoactive bowel sounds, soft, non-tender abdomen Skin: warm Neurologic: AAOx3 Psychiatric: interacting appropriately, not anxious, not encephalopathic, thought process linear ICD10 Worksheet Patient Problems: Problems Problem Status Onset Chest pain Acute Cervical stenosis of spinal canal Acute Cervical vertebral fusion Acute Chronic Disease Mgmt/Transitional Care Acute Fall Acute Hypoxia Acute Left-sided weakness Acute Status migrainosus Acute
--- NOTE | 2017-01-18 16:06 | ECHO ---
[email or web address] [address] [address] Main: [phone] Fax: Transthoracic Echocardiogram Name: SHERRIE BELLE MR#: [id number] Study Date: 01/18/2017 Study Time: 12:37 PM Date of : 1950 Age: 66 year(s) Height: 175.3 cm (69 in.) Weight: 85.28 kg (188 lb.) BSA: 2.01 m2 Gender: Female Examination: Echo Indication: Chest Pain, R/O Right heart strain, PE Image Quality: Contrast: Requested by: Andre Sharp BP: 128 mmHg/62 mmHg Heart Rate: Rhythm: Indication: Chest Pain, R/O Right heart strain, PE Procedure Staff Coding Educator: Blu Gould Reading Physician: Lan Israel Requesting Provider: Conclusions: Normal global systolic LV function. EF is 77 %. Normal size right ventricle. Trivial mitral valve regurgitation. There is no aortic valve regurgitation. There is no tricuspid valve regurgitation. Measurements: Chambers Valvular Assessment AV/MV Valvular Assessment TV/PV Normal Normal Normal Name Value Range Name Value Range Name Value Range Ao Rosalina (MM): 2.3 cm (2.2 cm-3.7 AV Vmax: 1.48 m/s (1 m/s-1.7 TR Vmax: 2.23 mm/s ( - ) cm) m/s) TR PGmax: 20 mmHg ( - ) IVSd (2D): 0.8 cm (0.6 cm-1.1 AV maxP mmHg ( - ) syst. PAP: 25 mmHg ( - ) cm) LVOT Vmax: 0.78 m/s (0.7 m/s-1.1 LVDd (2D): 4.4 cm (3.9 cm-5.3 m/s) cm) MV E Vmax: 0.76 m/s ( - ) LVDs (2D): 2.4 cm (2.1 cm-4 MV A Vmax: 1.03 m/s ( - ) cm) MV E/A: 0.74 ( - ) LVPWd (2D): 1.0 cm ( - ) LVEF (2D): 77 (>=54 %) Continued Measurements: Chambers Valvular Assessment AV/MV Valvular Assessment TV/PV Name Value Name Value Name Value LADs Lon.1 cm MV E' Septal: 0.06 m/s CVP (est.): 5 mmHg LA Area: 17.5 cm2 MV E/E' Septal: 13.10 LA Volume: 39 ml MV E/E' Lateral: 8.20 LA Volume Index: 19.4 ml/m2 Patient: SHERRIE BELLE Study Date: 01/18/2017 Page 1 of 2 12:37 PM Findings: Left Ventricle: Normal size left ventricle. No LV hypertrophy. Normal global systolic LV function. EF is 77 %. No regional wall motion abnormality. Right Ventricle: Normal size right ventricle. Normal RV function. Left Atrium: The left atrium is normal in size. Right Atrium: The right atrium is normal in size. Mitral Valve: The mitral valve is normal in appearance and function. Trivial mitral valve regurgitation. Aortic Valve: The aortic valve is normal in appearance and function. There is no aortic valve regurgitation. Tricuspid Valve: The tricuspid valve is normal in appearance and function. There is no tricuspid valve regurgitation. Pulmonic Valve: The pulmonic valve is normal in appearance and function. Aorta: The aorta is normal. Pericardium: No pericardial effusion. (No Signature Object) Patient: SHERRIE BELLE Study Date: 01/18/2017 Page 2 of 2 12:37 PM [id number]
--- NOTE | 2017-01-18 16:06 | ECHO ---
[email or web address] [address] [address] Main: [phone] Fax: Transthoracic Echocardiogram Name: SHERRIE BELLE MR#: [id number] Study Date: 01/18/2017 Study Time: 12:37 PM Date of : 1950 Age: 66 year(s) Height: 175.3 cm (69 in.) Weight: 85.28 kg (188 lb.) BSA: 2.01 m2 Gender: Female Examination: Echo Indication: Chest Pain, R/O Right heart strain, PE Image Quality: Contrast: Requested by: Andre Sharp BP: 128 mmHg/62 mmHg Heart Rate: Rhythm: Indication: Chest Pain, R/O Right heart strain, PE Procedure Staff Locomotive Crane Operator Helper: Blu Gould Reading Physician: Lan Israel Requesting Provider: Conclusions: Normal global systolic LV function. EF is 77 %. Normal size right ventricle. Trivial mitral valve regurgitation. There is no aortic valve regurgitation. There is no tricuspid valve regurgitation. Measurements: Chambers Valvular Assessment AV/MV Valvular Assessment TV/PV Normal Normal Normal Name Value Range Name Value Range Name Value Range Ao Rosalina (MM): 2.3 cm (2.2 cm-3.7 AV Vmax: 1.48 m/s (1 m/s-1.7 TR Vmax: 2.23 mm/s ( - ) cm) m/s) TR PGmax: 20 mmHg ( - ) IVSd (2D): 0.8 cm (0.6 cm-1.1 AV maxP mmHg ( - ) syst. PAP: 25 mmHg ( - ) cm) LVOT Vmax: 0.78 m/s (0.7 m/s-1.1 LVDd (2D): 4.4 cm (3.9 cm-5.3 m/s) cm) MV E Vmax: 0.76 m/s ( - ) LVDs (2D): 2.4 cm (2.1 cm-4 MV A Vmax: 1.03 m/s ( - ) cm) MV E/A: 0.74 ( - ) LVPWd (2D): 1.0 cm ( - ) LVEF (2D): 77 (>=54 %) Continued Measurements: Chambers Valvular Assessment AV/MV Valvular Assessment TV/PV Name Value Name Value Name Value LADs Lon.1 cm MV E' Septal: 0.06 m/s CVP (est.): 5 mmHg LA Area: 17.5 cm2 MV E/E' Septal: 13.10 LA Volume: 39 ml MV E/E' Lateral: 8.20 LA Volume Index: 19.4 ml/m2 Patient: SHERRIE BELLE Study Date: 01/18/2017 Page 1 of 2 12:37 PM Findings: Left Ventricle: Normal size left ventricle. No LV hypertrophy. Normal global systolic LV function. EF is 77 %. No regional wall motion abnormality. Right Ventricle: Normal size right ventricle. Normal RV function. Left Atrium: The left atrium is normal in size. Right Atrium: The right atrium is normal in size. Mitral Valve: The mitral valve is normal in appearance and function. Trivial mitral valve regurgitation. Aortic Valve: The aortic valve is normal in appearance and function. There is no aortic valve regurgitation. Tricuspid Valve: The tricuspid valve is normal in appearance and function. There is no tricuspid valve regurgitation. Pulmonic Valve: The pulmonic valve is normal in appearance and function. Aorta: The aorta is normal. Pericardium: No pericardial effusion. (No Signature Object) Patient: SHERRIE BELLE Study Date: 01/18/2017 Page 2 of 2 12:37 PM [id number]
--- NOTE | 2017-01-18 16:06 | ECHO ---
[email or web address] [address] [address] Main: [phone] Fax: Transthoracic Echocardiogram Name: SHERRIE BELLE MR#: [id number] Study Date: 01/18/2017 Study Time: 12:37 PM Date of : 1950 Age: 66 year(s) Height: 175.3 cm (69 in.) Weight: 85.28 kg (188 lb.) BSA: 2.01 m2 Gender: Female Examination: Echo Indication: Chest Pain, R/O Right heart strain, PE Image Quality: Contrast: Requested by: Andre Sharp BP: 128 mmHg/62 mmHg Heart Rate: Rhythm: Indication: Chest Pain, R/O Right heart strain, PE Procedure Staff Mounter Brass Wind Instruments: Blu Gould Reading Physician: Lan Israel Requesting Provider: Conclusions: Normal global systolic LV function. EF is 77 %. Normal size right ventricle. Trivial mitral valve regurgitation. There is no aortic valve regurgitation. There is no tricuspid valve regurgitation. Measurements: Chambers Valvular Assessment AV/MV Valvular Assessment TV/PV Normal Normal Normal Name Value Range Name Value Range Name Value Range Ao Rosalina (MM): 2.3 cm (2.2 cm-3.7 AV Vmax: 1.48 m/s (1 m/s-1.7 TR Vmax: 2.23 mm/s ( - ) cm) m/s) TR PGmax: 20 mmHg ( - ) IVSd (2D): 0.8 cm (0.6 cm-1.1 AV maxP mmHg ( - ) syst. PAP: 25 mmHg ( - ) cm) LVOT Vmax: 0.78 m/s (0.7 m/s-1.1 LVDd (2D): 4.4 cm (3.9 cm-5.3 m/s) cm) MV E Vmax: 0.76 m/s ( - ) LVDs (2D): 2.4 cm (2.1 cm-4 MV A Vmax: 1.03 m/s ( - ) cm) MV E/A: 0.74 ( - ) LVPWd (2D): 1.0 cm ( - ) LVEF (2D): 77 (>=54 %) Continued Measurements: Chambers Valvular Assessment AV/MV Valvular Assessment TV/PV Name Value Name Value Name Value LADs Lon.1 cm MV E' Septal: 0.06 m/s CVP (est.): 5 mmHg LA Area: 17.5 cm2 MV E/E' Septal: 13.10 LA Volume: 39 ml MV E/E' Lateral: 8.20 LA Volume Index: 19.4 ml/m2 Patient: SHERRIE BELLE Study Date: 01/18/2017 Page 1 of 2 12:37 PM Findings: Left Ventricle: Normal size left ventricle. No LV hypertrophy. Normal global systolic LV function. EF is 77 %. No regional wall motion abnormality. Right Ventricle: Normal size right ventricle. Normal RV function. Left Atrium: The left atrium is normal in size. Right Atrium: The right atrium is normal in size. Mitral Valve: The mitral valve is normal in appearance and function. Trivial mitral valve regurgitation. Aortic Valve: The aortic valve is normal in appearance and function. There is no aortic valve regurgitation. Tricuspid Valve: The tricuspid valve is normal in appearance and function. There is no tricuspid valve regurgitation. Pulmonic Valve: The pulmonic valve is normal in appearance and function. Aorta: The aorta is normal. Pericardium: No pericardial effusion. (No Signature Object) Patient: SHERRIE BELLE Study Date: 01/18/2017 Page 2 of 2 12:37 PM [id number]
[2017-01-18] MEDS: PANTOPRAZOLE SODIUM 40 MG VIAL IVP SCH (20:24)
[2017-01-19] MEDS: HYDROmorphONE/DILAUDID 1 MG/ML INJ IVP PRN ×3 (00:05→15:39)
[2017-01-19] MEDS: oxyCODONE IR 5 MG TAB PO PRN ×5 (03:29→20:46)
--- NOTE | 2017-01-19 03:50 | GCON ---
[f rep st] CONSULTATION CARDIAC CONSULTATION DATE OF CONSULTATION: 01/18/2017 CHIEF COMPLAINT: Chest pain. HISTORY OF PRESENT ILLNESS: The patient is a 66-year-old female, who [facility] sudden onset of chest pain. She has multiple orthopedic issues, and she dislocated her hip in November, which was followed by surgery with Dr. Higgins on December 01 in [place]. Postprocedure , she had no feeling in her right leg. This has been improving slowly, but she has been unable to go home and residing at a rehab facility. She was sitting yesterday when she had sudden onset of feeli ng like she was punched in the chest. This was associated with shortness of breath and radiated to h er neck, shoulder, and left arm. She was given nitroglycerin without any improvement in her discomfo rt. She was later given fentanyl, which resolved her pain. She had another event this morning which lasted approximately 30 minutes, and this time radiated to her jaw. She has history of DVT and her D-dimer was elevated at 1.94. She had a pulmonary CT angiogram which is negative for pulmonary embolus. She also had lower extremity ultrasound which was negative for DV T. Her CT did show evidence of coronary calcification. Her EKG was nonischemic and her troponins pimentel ve been negative x4. An echocardiogram showed preserved LV function without any evidence of signific ant valvular or wall motion abnormalities. She was admitted approximately a year ago with similar symptoms. She was told that she had a mild el evation in her troponin. She attempted a nuclear stress test today, but was unable to lay flat secondary to back discomfort. PAST MEDICAL HISTORY: History of deep venous thrombosis. She has multiple orthopedic issues, COPD, chronic head and neck pain, reflux. PAST SURGICAL HISTORY: Cervical fusion, appendectomy, bilateral knee and hip surgeries. SOCIAL HISTORY: She has a history of tobacco use and quit 3 months ago. She is currently residing a t a long term facility secondary to her hip discomfort. FAMILY HISTORY: Mother had 2 myocardial infarctions with her first one occurring at the age of 85. HOME MEDICATIONS: Maxzide 25 mg daily, albuterol p.r.n., Lyrica 75 mg b.i.d., Valium 5 mg p.r.n., Ro baxin 750 mg p.r.n., oxycodone IR 5-10 mg q.3 hours p.r.n. ALLERGIES: Penicillin and sulfa. PHYSICAL EXAMINATION: GENERAL: Patient appears in no acute distress. VITAL SIGNS: Blood pressure 106/56, heart rate 98, oxygen saturation of 91% on room air. Afebrile. NECK: No carotid bruits or JVD present. LUNGS: Clear to auscultation. No wheezes, rhonchi, or crackles auscultated. CARDIAC: Regular rate and rhythm without any significant murmurs, rubs, or gallops appreciated. ABDOMEN: S oft, nontender, nondistended. Bowel sounds present. EXTREMITIES: Palpable pulses bilaterally witho ut any evidence of edema. SKIN: No obvious rashes or ecchymosis identified. NEUROLOGIC: Nonfocal. PSYCHIATRIC: Mood and affect appropriate. REVIEW OF SYSTEMS: Negative except for what is stated in the H and P. LABORATORY DATA: Troponin is negative x4. Total cholesterol 172, LDL 82, HDL 45. D-dimer 1.94. He moglobin 9.2, hematocrit 31.5. ASSESSMENT: The patient is a 66-year-old female, admitted to the hospital with chest pain. PLAN: The patient had 2 episodes of chest discomfort which are concerning for coronary disease. It is encouraging that her troponins have been negative, but given the intensity and severity of her dis comfort, I do think further testing is warranted. She does have known coronary artery disease on the basis of her CT scan done earlier this admission. Her other risk factors for coronary artery diseas e include recent tobacco use, quitting 3 months ago. Unfortunately, she is unable to proceed with a nuclear stress test because she cannot sit or lie flat for extended periods of time. We discussed op tions including an angiogram which she would like to proceed with. She will need to be sedated for t he procedure due to her back pain. She understands this increases the risk, but she would like to pr oceed. She has a history of chronic anemia and is complaining of progressive symptoms consistent with reflux . She will be started on a proton pump inhibitor. If intervention of her coronaries is necessary, t his will need to be taken into consideration. The patient was discussed with Dr. Lan Israel today. /[id number]/MODL
[2017-01-19 05:24] LABS: PLATELET COUNT 323 10^3/uL (150-400)
[2017-01-19 05:49] LABS: INR 0.99 (0.83-1.16)
[2017-01-19] MEDS ORDERED: ASPIRIN EC 325 MG TAB PO ONE (06:00)
[2017-01-19] MEDS ORDERED: diphenhydrAMINE 25 MG CAP PO ONE (06:00)
[2017-01-19] MEDS ORDERED: NS 1,000 ML IV ONE (06:00)
[2017-01-19] MEDS ORDERED: FAMOTIDINE 20 MG TAB PO ONE (06:00)
[2017-01-19] MEDS: DIAZEPAM 5 MG TAB PO PRN (07:28)
[2017-01-19] MEDS ORDERED: MIDAZOLAM 2 MG/2 ML VIAL ONE (07:58)
[2017-01-19] MEDS ORDERED: LIDOCAINE 1% 300 MG/30 ML SDV ONE (07:58)
[2017-01-19] MEDS ORDERED: fentaNYL 100 MCG/2 ML INJ ONE (07:58)
[2017-01-19] MEDS ORDERED: IOPAMIDOL (ISOVUE-370) 150 ML BTL IV ONE ×2 (07:59→08:59)
--- NOTE | 2017-01-19 08:21 | PDGENHP ---
History and Physical History and Physical: No changes in patient status overnight. Patient was seen and examined by [facility]. Risks and benefits of the procedure were discussed last evening. Patient with understanding and ready to proceed.
--- NOTE | 2017-01-19 08:21 | PDPROPOC ---
Sedation Plan of Care Sedation Plan of Care: vital signs stable, mental status noted, patient educated of risks, benefits, alternatives, patient can tolerate sedation ASA Classification: ASA 3 Planned drugs: fentanyl, midazolam Mallampati Score: Class 2 Mallampati Reference Image: Patient passed 3-3-2 rule?: Yes
--- NOTE | 2017-01-19 08:21 | PDGENHP ---
History and Physical History and Physical: No changes in patient status overnight. Patient was seen and examined by [facility]. Risks and benefits of the procedure were discussed last evening. Patient with understanding and ready to proceed.
--- NOTE | 2017-01-19 09:02 | PDMN ---
Medical Necessity Medical necessity: Change to IP per MD; los >2 mn for persistent chest pain; admitted for further testing/Cardiology consult, hx chronic hip dislocations (s/ p R hip surgery), comorbid COPD, HTN, CAD, DVT & PE; per progress note & order 01/18/17
--- NOTE | 2017-01-19 09:23 | PDDXCAT ---
Diagnostic Cath Note - . Date: 01/19/17 Wire Coating Operator Metal: Jhonatan Indication: CCC Class III and IV angina on medical treatment - Procedure Access: right groin Procedure: left heart catheterization, coronary angiography, left ventriculogram - Materials Left Heart Cath size: 6F Left Heart Cath materials: standard multipack (JL4, JR4, pigtail) - Findings-Left Heart Catheterization LM: Short with bifurcation into the LAD and LCX. No luminal irregularities were noted. LAD: Medium sized vessel with two diagonals (both slightly smaller than the take off from the LAD). Luminal irregularties to the take off of both of the branch vessels. Maximal irregularities to about 30%. LCX: Medium diameter vessel (dominant) with two principal obtuse marginals (the latter of which supplies in the territory of the PDA). No clear luminal irregularities were noted to the LCX system. RCA: Diminuative vessel with ostial spasm from catherter (20%). No other luminal irregularities were noted. EDP: 28 mm Hg LVEF: 60 Wall motion: normal Complications: none Estimated blood loss: <50ml Closure method: Angioseal Assessment: 66 y/o female with known CAD by CT scan without critical lesions identified to the LAD, LCX, or RCA. Small right system with LCX dominance. Normal left ventricular systolic ejection fraction. Plan: Aggressive medical management should ensue. Would have the patient follow up with cardiology in the outpatient setting. Intervention: none Patient Problems: Problems Problem Status Onset Chest pain Acute Cervical stenosis of spinal canal Acute Cervical vertebral fusion Acute Chronic Disease Mgmt/Transitional Care Acute Fall Acute Hypoxia Acute Left-sided weakness Acute Status migrainosus Acute
--- NOTE | 2017-01-19 09:42 | PDCARPN ---
Cardiology Progress Note Chief Complaint: Diffuse pains (back, hip, legs) Assessment/Plan: Assessment: Patient is a 66 y/o female with recent CT scan (to rule out PE) which noted CAD. Patient was scheduled to have MPI testing, but given her extreme pains, she was unable to lie flat for the testing. Episode of chest pain was noted. No cardiac biomarker elevation was noted. Given symptoms and awareness of CAD by CT scan, we decided to pursue angiography. Angiography was performed this morning. No critical lesions were identified. Normal LVEF was noted (normal wall motion). Plan: (1) Would maintain aggressive CV risk modification (2) Annual assessment of cholesterol and LFTs - given the presence of CAD, would have patient on statin therapy (if tolerated ) (3) Low dose ASA therapy is recommended (81 mg per day) (4) Routine assessment of blood pressure - patient with moderate to severe chronic pains, which can result in elevations to blood pressure (5) PT/OT/regular exercise - this may be exceedingly difficult for the patient given her chronic pains, but some form of exercise is recommended (6) Would have the patient seen in follow up (outpatient) by cardiology given this recent, invasive cardiovascular testing Subjective: Chronic pains Reviewed/Discussed With: hospitalist Objective: Vital Signs (8 Hrs) Temp Pulse Resp BP Pulse Ox 01/19/17 04:00 37 C 82 14 107/47 L 92 Intake/Output (24 Hrs) 01/18/17 01/19/17 01/20/17 05:59 05:59 05:59 Intake Total 240 Balance 240 Intake: Oral (ml) 240 Other: Number of Voids Toilet 2 2 Result Diagrams: 01/19/17 03:42 01/19/17 03:42 Telemetry: normal sinus rhythm - Physical Exam Constitutional: obese, general pain Eyes: PERRL, EOMI Ears, Nose, Mouth, Throat: moist mucous membranes Cardiovascular: regular rate and rhythm, no murmurs, No jugular vein distention Peripheral Pulses: 2+: dorsalis-pedis (R), dorsalis-pedis (L) Respiratory: clear to auscultate bilat, no crackles, no wheezes Gastrointestinal: normoactive bowel sounds Skin: no edema Musculoskeletal: joint tenderness, muscular tenderness Neurologic: AAOx3, CN II-XII grossly intact Psychiatric: cooperative, interactive, following commands ICD10 Worksheet Patient Problems: Problems Problem Status Onset Chest pain Acute Cervical stenosis of spinal canal Acute Cervical vertebral fusion Acute Chronic Disease Mgmt/Transitional Care Acute Fall Acute Hypoxia Acute Left-sided weakness Acute Status migrainosus Acute
--- NOTE | 2017-01-19 11:04 | PDDCSUM ---
Discharge Summary Discharge Summary: Hospital Course and HPI 66 yo female with hx of recent hip surgery admitted for acute onset of chest pain. W/u negative for PE or DVT. EKG c/w NSR. Trops x 3 negative. Was still having significant intermittent chest pain 8-10/10, substernal, radiating to the the jaw, left side of neck on Day #1 of hospitalization. Could not do Lexican today due to inability to be on back. Cards consulted and on day #2, cardiac cath was performed and results were no significant stenosis. Recommendation is for aggressive med mgmt. #acute chest pain, unclear etiology: Pain mgmt #Recent right hip surgery, no e/o of VTE. cont with rehab and f/u per previous plan #COPD on RA #HTN #Former tobacco user #Anemia (chronic): B12 deficiency, Iron deficiency. Replacement started. No abd pain. Will nee further f/u exam: VSS NAD AAOX3 RRR CTA B S/NT/ND meds: see med rec f/u: with PCP 1-2 weeks, Cards 2-4 weeks, Ortho: as previously arranged total time spent on discharge is 35 minutes
--- NOTE | 2017-01-19 11:11 | PDIAF ---
- Diagnosis Diagnosis: chest pain, no e/o of CAD on cath. OK to return to SNF Code Status: Full Code - Medication Management Discharge Medications: Medications to Continue on Transfer Triamterene/Hctz 37.5/25 [Maxzide-25 (*)] 1 tab PO DAILY 02/26/15 [Last Taken 12:00] Albuterol [Ventolin Hfa Inhaler] 2 puffs IH Q6 PRN 10/27/16 [Last Taken 07:00] Pregabalin [Lyrica 75mg (*)] 75 mg PO BID 10/27/16 [Last Taken 11/10/16 07:00] Diazepam [Valium 5 MG (*)] 5 mg PO Q8 PRN #0 tab 11/21/16 [Last Taken Unknown] Methocarbamol [Robaxin 750 mg (*)] 750 mg PO QID PRN #0 tab 11/21/16 [Last Taken Unknown] oxyCODONE IR [Oxycodone Ir (*)] 5 - 10 mg PO Q3H PRN #0 tab 11/21/16 [Last Taken Unknown] Cyanocobalamin (Vitamin B-12) [B-12] 1,000 mcg PO DAILY #30 tablet 01/19/17 [ Last Taken Unknown] Ferrous Sulfate [Iron] 325 mg PO BID #60 tablet 01/19/17 [Last Taken Unknown] Discharge Medications: Refer to the Discharge Home Medication list for PRN reason. - Orders Services needed: Physical Therapy, Occupational Therapy Diet Recommendation: cardiac -low fat low salt Diet Texture: Regular Texture Diet - Follow Up Care Current Providers and Referrals: JEANNE PATRICK [Other] - As per Instructions
[2017-01-19] MEDS: ENOXAPARIN 40 MG/0.4 ML SYR SC SCH ×2 (12:05→16:51)
[2017-01-19] MEDS: PANTOPRAZOLE SODIUM 40 MG VIAL IVP SCH ×3 (12:07→20:47)
[2017-01-19] MEDS: PREGABALIN 75 MG CAP PO SCH ×3 (12:08→20:47)
[2017-01-19] MEDS: TRIAMTERENE/HCTZ 37.5/25 1 EACH TAB PO SCH (12:08)
[2017-01-19] MEDS: METHOCARBAMOL 750 MG TAB PO PRN (13:44)
--- NOTE | 2017-01-19 15:15 | ASMTCASEMG ---
Living Arrangements What is your living Answers: Alone arrangement? Who do you live with? Type Of Residence What kind of residence do Answers: House you live in? Discharge Plan Comments Coordination Status Comments Notes: Pt is a 66 y/o woman admitted w/ chest pain and evaluated for a pulmonary embolism. Pt has a hx of COPD and HTN. PT is recommending inpatient rehab. OT is recommending SNF. CM met w/ pt dispo planning. Pt is hoping to go to inpatient rehab at [place]. CM sent referral over. Dr. Sharp put in an order for rehab eval. [facility] inpatient rehab cannot take pt at this time. CM spoke w/ sonMatti of the phone and he would like pt to go to a rehab facility before coming home. Referral sent to [facility]. Pt does not want to go back to [facility]. CM to follow. Date Signed: 01/19/2017 03:14 PM Electronically Signed By:RUPALI Waters
--- NOTE | 2017-01-19 15:15 | ASMTCASEMG ---
Living Arrangements What is your living Answers: Alone arrangement? Who do you live with? Type Of Residence What kind of residence do Answers: House you live in? Discharge Plan Comments Coordination Status Comments Notes: Pt is a 66 y/o woman admitted w/ chest pain and evaluated for a pulmonary embolism. Pt has a hx of COPD and HTN. PT is recommending inpatient rehab. OT is recommending SNF. CM met w/ pt dispo planning. Pt is hoping to go to inpatient rehab at [place]. CM sent referral over. Dr. Sharp put in an order for rehab eval. [facility] inpatient rehab cannot take pt at this time. CM spoke w/ sonMatti of the phone and he would like pt to go to a rehab facility before coming home. Referral sent to Vinayak Garcia. Pt does not want to go back to [facility]. CM to follow. Date Signed: 01/19/2017 03:14 PM Electronically Signed By:RUPALI Waters
--- NOTE | 2017-01-19 15:15 | ASMTCASEMG ---
Living Arrangements What is your living Answers: Alone arrangement? Who do you live with? Type Of Residence What kind of residence do Answers: House you live in? Discharge Plan Comments Coordination Status Comments Notes: Pt is a 66 y/o woman admitted w/ chest pain and evaluated for a pulmonary embolism. Pt has a hx of COPD and HTN. PT is recommending inpatient rehab. OT is recommending SNF. CM met w/ pt dispo planning. Pt is hoping to go to inpatient rehab at [place]. CM sent referral over. Dr. Sharp put in an order for rehab eval. [facility] inpatient rehab cannot take pt at this time. CM spoke w/ sonMatti of the phone and he would like pt to go to a rehab facility before coming home. Referral sent to Vinayak Garcia. Pt does not want to go back to [facility]. CM to follow. Date Signed: 01/19/2017 03:14 PM Electronically Signed By:RUPALI Waters
[2017-01-19] MEDS ORDERED: PROTOCOL MAGNESIUM 1 DOSE IV PRN (16:04)
[2017-01-19] MEDS ORDERED: PROTOCOL POTASSIUM 1 DOSE MISC PRN (16:04)
[2017-01-19] MEDS ORDERED: POLYETHYLENE GLYCOL 3350 17 GM PKT PO PRN (16:07)
[2017-01-19] MEDS ORDERED: LACTULOSE 20 GM/30 ML UDCUP PO PRN (16:07)
[2017-01-19] MEDS ORDERED: MAGNESIUM HYDROXIDE 30 ML UDCUP PO PRN (16:07)
[2017-01-19] MEDS ORDERED: MAGNESIUM SULF 2 GM/WATER 50 ML IV ONE (16:07)
[2017-01-19] MEDS ORDERED: BISACODYL 10 MG SUPP PR PRN (16:07)
[2017-01-19] MEDS ORDERED: POTASSIUM CL 10 MEQ TAB PO ONE (20:03)
[2017-01-19] MEDS: SENNOSIDES/DOCUSATE SODIUM TAB PO SCH (20:46)
[2017-01-20] MEDS: oxyCODONE IR 5 MG TAB PO PRN ×3 (04:10→20:00)
[2017-01-20] MEDS: PANTOPRAZOLE SODIUM 40 MG VIAL IVP SCH (08:11)
[2017-01-20] MEDS: SENNOSIDES/DOCUSATE SODIUM TAB PO SCH ×2 (08:12→20:00)
[2017-01-20] MEDS: TRIAMTERENE/HCTZ 37.5/25 1 EACH TAB PO SCH (08:12)
[2017-01-20] MEDS: PREGABALIN 75 MG CAP PO SCH ×3 (08:12→21:15)
[2017-01-20] MEDS: ENOXAPARIN 40 MG/0.4 ML SYR SC SCH (08:13)
[2017-01-20] MEDS: LORazepam 2 MG/ML INJ IVP PRN ×2 (10:00→14:14)
[2017-01-20 11:40] LABS: PLATELET COUNT 295 10^3/uL (150-400)
--- NOTE | 2017-01-20 13:14 | HOSPPROG ---
Hospitalist Progress Note Assessment/Plan: 66 yo female with hx of recent hip surgery admitted for acute onset of chest pain. W/u negative for PE or DVT. EKG c/w NSR. Trops x 3 negative. Was still having significant intermittent chest pain 8-01/03, substernal, radiating to the the jaw, left side of neck on Day #1 of hospitalization. Could not do Lexican today due to inability to be on back. Cards consulted and on 01/19, cardiac cath was performed and results were no significant stenosis. Recommendation is for aggressive med mgmt. Was going to be discharged on 01/19, but PT felt that inpatient rehab was needed. In addition the pt started having lots of right hip pain. Today she continues with right hip pain but now also reports low back pain and left hip pain. There is some radiculopathy extending down the right leg. She is no longer having any CP, no CV or Resp sx's. I discussed with pts orthopedic surgeon at the [place], Dr. Shahzad Higgins, whom she was going to have f/u appt with today for f/u surgery. His plan was to reimage her hip and advance therapy, restrictions based on the findings. He has asked me to order this as well as get inflammatory markers today. Given her persistent sx's and acute on chronic pain, will continue inpatient overnight Plan -Await inflammatory markers -Await results for XR righ hip and lumbar back -D/w Dr. Shahzad Higgins -Change Protonix to daily -Increase Lyrica -Cont pain meds PRN -Stop BP meds, due to borderline low BP -PT/OT #acute chest pain, unclear etiology: Pain mgmt #Recent right hip surgery, no e/o of VTE. cont with rehab and f/u per previous plan #COPD on RA #HTN #Former tobacco user #Anemia (chronic): B12 deficiency, Iron deficiency. Replacement started. #Weakness and Deconditioning #Acute on Chronic pain syndrome #Low back pain with right sided radiculopathy Subjective: still with lots of low back pain and bilateral hip pain. No CP or SOB Objective: Vital Signs Temp Pulse Resp BP Pulse Ox 36.8 C 97 20 121/54 H 95 01/20/17 11:14 01/20/17 11:14 01/20/17 11:14 01/20/17 11:14 01/20/17 11:14 Laboratory Results 01/20/17 Unknown 01/20/17 03:55 01/19/17 01/20/17 01/21/17 05:59 05:59 05:59 Intake Total 240 1360 Balance 240 1360 PT 13.0 SEC (12.0-15.0) 01/19/17 03:42 INR 0.99 (0.83-1.16) 01/19/17 03:42 - Time Spent With Patient Time Spent with Patient: greater than 35 minutes Time Spent with Patient: Greater than 35 minutes spent on this patients care, greater than 50% of time spent counseling, educating, and coordinating care regarding the above mentioned plan. - Physical Exam Constitutional: No not in pain Eyes: PERRL, EOMI Ears, Nose, Mouth, Throat: moist mucous membranes, hearing normal Cardiovascular: regular rate and rhythym Respiratory: no respiratory distress, no rales or rhonchi, clear to auscultation Gastrointestinal: normoactive bowel sounds Skin: warm Neurologic: AAOx3 Psychiatric: interacting appropriately, not encephalopathic, thought process linear, anxious ICD10 Worksheet Patient Problems: Problems Problem Status Onset Chest pain Acute Cervical stenosis of spinal canal Acute Cervical vertebral fusion Acute Chronic Disease Mgmt/Transitional Care Acute Fall Acute Hypoxia Acute Left-sided weakness Acute Status migrainosus Acute
--- NOTE | 2017-01-20 15:29 | ASMTCMCOM ---
CM Note CM Note Notes: CM completed non triggering PASRR and fax attached it to allscripts. Additional referrals have been sent to [facility] and [facility]. Rebekah from [facility] came and did an on site w/ pt. [facility] does not anticipating have any beds for this wknd. CM left a msg for Vinayak and requested a call back. Kenzie from [facility] will assess and evaluate pt. CM contacted Paige Powell in financial counseling to see how many more SNF days pt has. CM spoke w/ Paige Powell and was informed that pt has 74 Medicare co-pay days and her AARP will cover 100% of the co-pay. In addition, pt has 60 reserve life time days if pt needed to stay for a longer period. Pt reported that she also wanted CM to make a referral to [facility]. CM to follow. Date Signed: 01/20/2017 03:28 PM Electronically Signed By:RUPALI Waters
--- NOTE | 2017-01-20 15:29 | ASMTCMCOM ---
CM Note CM Note Notes: CM completed non triggering PASRR and fax attached it to allscripts. Additional referrals have been sent to [facility] and [facility]. Rebekah from [facility] came and did an on site w/ pt. [facility] does not anticipating have any beds for this wknd. CM left a msg for Vinayak and requested a call back. Kenzie from [facility] will assess and evaluate pt. CM contacted Paige Powell in financial counseling to see how many more SNF days pt has. CM spoke w/ Paige Powell and was informed that pt has 74 Medicare co-pay days and her AARP will cover 100% of the co-pay. In addition, pt has 60 reserve life time days if pt needed to stay for a longer period. Pt reported that she also wanted CM to make a referral to [facility]. CM to follow. Date Signed: 01/20/2017 03:28 PM Electronically Signed By:RUPALI Waters
--- NOTE | 2017-01-20 15:29 | ASMTCMCOM ---
CM Note CM Note Notes: CM completed non triggering PASRR and fax attached it to allscripts. Additional referrals have been sent to [facility] and [facility]. Rebekah from [facility] came and did an on site w/ pt. [facility] does not anticipating have any beds for this wknd. CM left a msg for Vinayak and requested a call back. Kenzie from [facility] will assess and evaluate pt. CM contacted Paige Powell in financial counseling to see how many more SNF days pt has. CM spoke w/ Paige Powell and was informed that pt has 74 Medicare co-pay days and her AARP will cover 100% of the co-pay. In addition, pt has 60 reserve life time days if pt needed to stay for a longer period. Pt reported that she also wanted CM to make a referral to [facility] [place]. CM to follow. Date Signed: 01/20/2017 03:28 PM Electronically Signed By:RUPALI Waters
--- NOTE | 2017-01-20 15:55 | ASMTCMCOM ---
CM Note CM Note Notes: [facility] has accepted pt for rehab. CM notified pt of this news. CM to follow. Date Signed: 01/20/2017 03:54 PM Electronically Signed By:RUPALI Waters
[2017-01-20] MEDS: HYDROmorphone HCL/NS/PF 0.4 MG/2 ML SYR IVP PRN ×3 (16:04→22:02)
[2017-01-20] MEDS: FERROUS SULFATE 325 MG TAB PO SCH (20:01)
[2017-01-20] MEDS: DIAZEPAM 5 MG TAB PO PRN (21:15)
[2017-01-21 00:08] VITALS: RESP 16
[2017-01-21] MEDS: oxyCODONE IR 5 MG TAB PO PRN ×4 (02:09→12:56)
[2017-01-21 07:38] VITALS: BP 122/72; PULSE 89; TEMP 98.8
[2017-01-21] MEDS ORDERED: MAGNESIUM SULF 1 GM/DEXTROSE 100 ML IV ONE (08:01)
[2017-01-21] MEDS ORDERED: CYANO/VITAMIN B12 100 MCG TAB PO SCH (09:00)
[2017-01-21] MEDS ORDERED: PANTOPRAZOLE SODIUM 40 MG TAB PO SCH (09:00)
[2017-01-21] MEDS: FERROUS SULFATE 325 MG TAB PO SCH (09:37)
[2017-01-21] MEDS: SENNOSIDES/DOCUSATE SODIUM TAB PO SCH (09:37)
[2017-01-21] MEDS: PREGABALIN 75 MG CAP PO SCH (09:37)
[2017-01-21] MEDS: ENOXAPARIN 40 MG/0.4 ML SYR SC SCH (09:38)
--- NOTE | 2017-01-21 10:37 | PDDCSUM ---
Discharge Summary Discharge Summary: Hospital Course and HPI 66 yo female with hx of recent hip surgery admitted for acute onset of chest pain. W/u negative for PE or DVT. EKG c/w NSR. Trops x 3 negative. Was still having significant intermittent chest pain 8-01/03, substernal, radiating to the the jaw, left side of neck on Day #1 of hospitalization. Could not do Lexican today due to inability to be on back. Cards consulted and on 01/19, cardiac cath was performed and results were no significant stenosis. Recommendation is for aggressive med mgmt. She has not had any CV symptoms in 2 days. Was going to be discharged on 01/19, but PT felt that inpatient rehab was needed. In addition the pt started having lots of right hip pain. Dr. Shahzad Higgins, her ortho surgeon at the [place] was notified, and XR of the righ hip as well as lumar XR was done and these were unremarkable. ESR was negative. CRP slightly elevated and the plan is for Dr. Higgins to consider doing an aspiration of the right hip as an outpatient. On the morning of discharge she appears very comfortable. She does not have pain. She is eating her breakfast. She is agreeable for transfer to [facility] for further rehabilitation. Her home BP meds have been stopped. Lyrical was incrased will need f/u with Dr. Higgins as arranged DDx: #acute chest pain, unclear etiology: #Recent right hip surgery, no e/o of VTE. cont with rehab and f/u with Dr. Higgins #COPD on RA #HTN #Former tobacco user #Anemia (chronic): B12 deficiency, Iron deficiency. Replacement started. #Weakness and Deconditioning, will go to rehab #Acute on Chronic pain syndrome #Low back pain with right sided radiculopathy, Lyrica incresed exam: VSS NAD AAOX3 RRR CTA B S/NT/ND meds: see med rec f/u: with PCP 1-2 weeks, Cards 2-4 weeks, Ortho: as arranged with Dr. Higgins total time spent on discharge is 35 minutes
--- NOTE | 2017-01-21 10:44 | PDIAF ---
- Diagnosis Diagnosis: chest pain. Ok for d/c to [facility] Code Status: Full Code - Medication Management Discharge Medications: Medications to Continue on Transfer Triamterene/Hctz 37.5/25 [Maxzide-25 (*)] 1 tab PO DAILY 02/26/15 [Last Taken 12:00] Albuterol [Ventolin Hfa Inhaler] 2 puffs IH Q6 PRN 10/27/16 [Last Taken 07:00] Pregabalin [Lyrica 75mg (*)] 75 mg PO BID 10/27/16 [Last Taken 11/10/16 07:00] Diazepam [Valium 5 MG (*)] 5 mg PO Q8 PRN #0 tab 11/21/16 [Last Taken Unknown] Methocarbamol [Robaxin 750 mg (*)] 750 mg PO QID PRN #0 tab 11/21/16 [Last Taken Unknown] oxyCODONE IR [Oxycodone Ir (*)] 5 - 10 mg PO Q3H PRN #0 tab 11/21/16 [Last Taken Unknown] Cyanocobalamin (Vitamin B-12) [B-12] 1,000 mcg PO DAILY #30 tablet 01/19/17 [ Last Taken Unknown] Ferrous Sulfate [Iron] 325 mg PO BID #60 tablet 01/19/17 [Last Taken Unknown] Discharge Medications: Refer to the Discharge Home Medication list for PRN reason. - Orders Services needed: Physical Therapy, Occupational Therapy Diet Recommendation: cardiac -low fat low salt Diet Texture: Regular Texture Diet - Follow Up Care Current Providers and Referrals: JEANNE PATRICK [Other] - As per Instructions
--- NOTE | 2017-01-21 11:27 | ASMTCMCOM ---
CM Note CM Note Notes: Pt. d/cing to [facility] today. SWer coordinated with Pt, bedside RN, and Sina at [facility] [place] to determine d/c time. 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 Pt. needs wheelchair and 2L O2. Sent d/c orders and meds via All[employer]. Pt. states she has leg pain. RN is aware. Current plan: d/c today to [facility]. Date Signed: 01/21/2017 11:26 AM Electronically Signed By:Mandi Avery LCSW
--- NOTE | 2017-01-21 11:27 | ASMTCMCOM ---
CM Note CM Note Notes: Pt. d/cing to [facility] today. SWer coordinated with Pt, bedside RN, and Sina at [facility] [place] to determine d/c time. Plan for waste picker at 12:45. Pt. needs wheelchair and 2L O2. Sent d/c orders and meds via Allscripts. Pt. states she has leg pain. RN is aware. Current plan: d/c today to [facility]. Date Signed: 01/21/2017 11:26 AM Electronically Signed By:Mandi Avery LCSW
--- NOTE | 2017-01-21 11:27 | ASMTCMCOM ---
CM Note CM Note Notes: Pt. d/cing to [facility] today. SWer coordinated with Pt, bedside RN, and Sina at [facility] [place] to determine d/c time. Plan for corn picker at 12:45. Pt. needs wheelchair and 2L O2. Sent d/c orders and meds via [employer]. Pt. states she has leg pain. RN is aware. Current plan: d/c today to [facility]. Date Signed: 01/21/2017 11:26 AM Electronically Signed By:Mandi Avery LCSW
[2017-01-21] MEDS: HYDROmorphone HCL/NS/PF 0.4 MG/2 ML SYR IVP PRN (14:20)
[2017-01-21 14:41] VITALS: O2SAT 94
--- NOTE | 2017-01-22 15:02 | ASDISCHSUM ---
Discharge Information Plan Status:SNF Medically Cleared to Leave:01/21/2017 Discharge Date:01/21/2017 02:45 PM D/C [facility] ADT D/C Disposition:Other Rehab, Not [place] Projected Discharge Date:01/21/2017 11:00 AM Transportation at D/C:Wheelchair Van Discharge Delay Reason: Follow-Up Date:01/21/2017 11:00 AM Discharge Slot: Final Diagnosis:CP, R Hip pain Placement Information Referral Type:Rehabilitation Hospital Referral ID:[id number] Provider Name:[facility] (For Referrals to [place] or [facility]) Address 1:[address] Address 2: City:[place] Selection Factors: State:[place] Referral Type:*[facility]/SNF Referral ID:[id number] Provider Name:[facility] Address 1:[address] [address] Address 2: City:[place] Selection Factors: State:[place] Patient Contact Information Contact Name:VIOLETA Relationship:Son Address: Work Phone: City:[place] Alternate Phone: [facility]/Zip Code:[place] Email: Financial Information Financial Class: Primary Plan Desc:MEDICARE INPATIENT Primary Plan Number:[id number] Secondary Plan Desc:AARJaylene/MDR SUPPLEMENT Secondary Plan Number:[id number] Assessment Information [facility] Initial CM Assessment Living Arrangements What is your living Answers: Alone arrangement? Who do you live with? Type Of Residence What kind of residence do Answers: House you live in? Discharge Plan Comments Coordination Status Comments Notes: Pt is a 66 y/o woman admitted w/ chest pain and evaluated for a pulmonary embolism. Pt has a hx of COPD and HTN. PT is recommending inpatient rehab. OT is recommending SNF. CM met w/ pt dispo planning. Pt is hoping to go to inpatient rehab at [place]. CM sent referral over. Dr. Sharp put in an order for rehab eval. [facility] inpatient rehab cannot take pt at this time. CM spoke w/ sonMatti of the phone and he would like pt to go to a rehab facility before coming home. Referral sent to Vinayak Garcia. Pt does not want to go back to [facility]. CM to follow. Date Signed: 01/19/2017 03:14 PM Electronically Signed By:RUPALI Waters [facility] Progress Note CM Note CM Note Notes: CM completed non triggering PASRR and fax attached it to [employer]. Additional referrals have been sent to [place] [facility] and [facility]. Rebekah from [facility] came and did an on site w/ pt. [facility] does not anticipating have any beds for this wknd. CM left a msg for Vinayak and requested a call back. Kenzie from [facility] will assess and evaluate pt. CM contacted Paige Powell in financial counseling to see how many more SNF days pt has. CM spoke w/ Paige Powell and was informed that pt has 74 Medicare co-pay days and her AARP will cover 100% of the co-pay. In addition, pt has 60 reserve life time days if pt needed to stay for a longer period. Pt reported that she also wanted CM to make a referral to [facility] [place]. CM to follow. Date Signed: 01/20/2017 03:28 PM Electronically Signed By:RUPALI Waters [facility] Progress Note CM Note CM Note Notes: [facility] has accepted pt for rehab. CM notified pt of this news. CM to follow. Date Signed: 01/20/2017 03:54 PM Electronically Signed By:RUAPLI Waters [facility] Progress Note CM Note CM Note Notes: Pt. d/cing to [facility] today. Naomie coordinated with Pt, bedside RN, and Sina at [facility] to determine d/c time. Plan for pharmacy picking tech at 12:45. Pt. needs wheelchair and 2L O2. Sent d/c orders and meds via [place]. Pt. states she has leg pain. RN is aware. Current plan: d/c today to [facility]. Date Signed: 01/21/2017 11:26 AM Electronically Signed By:Mandi Avery LCSW Intervention Information Intervention Type:*BURKE-Signed Date of Service:01/18/2017 09:40 AM Patient Type:Observation Staff Member:Margaret Wright Hours: Discipline: Severity: Comment:
--- NOTE | 2017-01-22 15:02 | ASDISCHSUM ---
Discharge Information Plan Status:SNF Medically Cleared to Leave:01/21/2017 Discharge Date:01/21/2017 02:45 PM D/C Disposition:[facility] ADT D/C Disposition:Other Rehab, Not [place] Projected Discharge Date:01/21/2017 11:00 AM Transportation at D/C:Wheelchair Van Discharge Delay Reason: Follow-Up Date:01/21/2017 11:00 AM Discharge Slot: Final Diagnosis:CP, R Hip pain Placement Information Referral Type:Rehabilitation Hospital Referral ID:[id number] Provider Name:[facility] (For Referrals to [place] or [facility]) Address 1:[address] Address 2: City:[place] Selection Factors: State:[place] Referral Type:*Alf/SNF Referral ID:[id number] Provider Name:[facility] Address 1:[address] [address] Address 2: City:[place] Selection Factors: State:[place] Patient Contact Information Contact Name:VIOLETA Relationship:Son Address: Work Phone: City:[place] Alternate Phone: [facility]/Zip Code:[place] Email: Financial Information Financial Class: Primary Plan Desc:MEDICARE INPATIENT Primary Plan Number:[id number] Secondary Plan Desc:AARJaylene/MDR SUPPLEMENT Secondary Plan Number:[id number] Assessment Information [facility] Initial CM Assessment Living Arrangements What is your living Answers: Alone arrangement? Who do you live with? Type Of Residence What kind of residence do Answers: House you live in? Discharge Plan Comments Coordination Status Comments Notes: Pt is a 66 y/o woman admitted w/ chest pain and evaluated for a pulmonary embolism. Pt has a hx of COPD and HTN. PT is recommending inpatient rehab. OT is recommending SNF. CM met w/ pt dispo planning. Pt is hoping to go to inpatient rehab at [place]. CM sent referral over. Dr. Sharp put in an order for rehab eval. [facility] inpatient rehab cannot take pt at this time. CM spoke w/ sonMatti of the phone and he would like pt to go to a rehab facility before coming home. Referral sent to [facility]ayak Garcia. Pt does not want to go back to [facility]. CM to follow. Date Signed: 01/19/2017 03:14 PM Electronically Signed By:RUPALI Waters [facility] Progress Note CM Note CM Note Notes: CM completed non triggering PASRR and fax attached it to [employer]. Additional referrals have been sent to [facility]. Rebekah from [facility] came and did an on site w/ pt. [facility] does not anticipating have any beds for this wknd. CM left a msg for Vinayak and requested a call back. Kenzie from [facility] will assess and evaluate pt. CM contacted Paige Powell in financial counseling to see how many more SNF days pt has. CM spoke w/ Paige Powell and was informed that pt has 74 Medicare co-pay days and her AARP will cover 100% of the co-pay. In addition, pt has 60 reserve life time days if pt needed to stay for a longer period. Pt reported that she also wanted CM to make a referral to [facility] [place]. CM to follow. Date Signed: 01/20/2017 03:28 PM Electronically Signed By:RUPALI Waters [facility] Progress Note CM Note CM Note Notes: [facility] has accepted pt for rehab. CM notified pt of this news. CM to follow. Date Signed: 01/20/2017 03:54 PM Electronically Signed By:RUPALI Waters [facility] Progress Note CM Note CM Note Notes: Pt. d/cing to [facility] today. Naomie coordinated with Pt, bedside RN, and Sina at [facility] to determine d/c time. Plan for machine operator picker at 12:45. Pt. needs wheelchair and 2L O2. Sent d/c orders and meds via [employer]. Pt. states she has leg pain. RN is aware. Current plan: d/c today to [facility]. Date Signed: 01/21/2017 11:26 AM Electronically Signed By:Mandi Avery LCSW Intervention Information Intervention Type:*BURKE-Signed Date of Service:01/18/2017 09:40 AM Patient Type:Observation Staff Member:Margaret Wright Hours: Discipline: Severity: Comment:
--- NOTE | 2017-01-22 15:02 | ASDISCHSUM ---
Discharge Information Plan Status:SNF Medically Cleared to Leave:01/21/2017 Discharge Date:01/21/2017 02:45 PM D/C Disposition:Senior Living Facility ADT D/C Disposition:Other Rehab, Not [place] Projected Discharge Date:01/21/2017 11:00 AM Transportation at D/C:Wheelchair Van Discharge Delay Reason: Follow-Up Date:01/21/2017 11:00 AM Discharge Slot: Final Diagnosis:CP, R Hip pain Placement Information Referral Type:Rehabilitation Hospital Referral ID:[id number] Provider Name:[facility] (For Referrals to [place] or [place]) Address 1:[address] Address 2: City:[place] Selection Factors: State:[place] Referral Type:*Care Home/SNF Referral ID:[id number] Provider Name:[facility] Address 1:[address] Address 2: City:[place] Selection Factors: State:[place] Patient Contact Information Contact Name:VIOLETA Relationship:Son Address: Work Phone: City:[place] Alternate Phone: [facility]/Zip Code:[place] Email: Financial Information Financial Class: Primary Plan Desc:MEDICARE INPATIENT Primary Plan Number:[id number] Secondary Plan Desc:AARJaylene/MDR SUPPLEMENT Secondary Plan Number:[id number] Assessment Information [facility] Initial CM Assessment Living Arrangements What is your living Answers: Alone arrangement? Who do you live with? Type Of Residence What kind of residence do Answers: House you live in? Discharge Plan Comments Coordination Status Comments Notes: Pt is a 66 y/o woman admitted w/ chest pain and evaluated for a pulmonary embolism. Pt has a hx of COPD and HTN. PT is recommending inpatient rehab. OT is recommending SNF. CM met w/ pt dispo planning. Pt is hoping to go to inpatient rehab at [place]. CM sent referral over. Dr. Sharp put in an order for rehab eval. [facility] inpatient rehab cannot take pt at this time. CM spoke w/ sonMatti of the phone and he would like pt to go to a rehab facility before coming home. Referral sent to [facility]. Pt does not want to go back to [facility]. CM to follow. Date Signed: 01/19/2017 03:14 PM Electronically Signed By:RUPALI Waters [facility] RUBENS Progress Note CM Note CM Note Notes: CM completed non triggering PASRR and fax attached it to [employer]. Additional referrals have been sent to [facility] and [facility]. Rebekah from [facility] came and did an on site w/ pt. [facility] does not anticipating have any beds for this wknd. CM left a msg for [facility] and requested a call back. Kenzie from [facility] will assess and evaluate pt. CM contacted Paige Powell in financial counseling to see how many more SNF days pt has. CM spoke w/ Paige Powell and was informed that pt has 74 Medicare co-pay days and her AARP will cover 100% of the co-pay. In addition, pt has 60 reserve life time days if pt needed to stay for a longer period. Pt reported that she also wanted CM to make a referral to [facility]. CM to follow. Date Signed: 01/20/2017 03:28 PM Electronically Signed By:RUPALI Waters [facility] Progress Note CM Note CM Note Notes: [facility] has accepted pt for rehab. CM notified pt of this news. CM to follow. Date Signed: 01/20/2017 03:54 PM Electronically Signed By:RUPALI Waters [facility] Progress Note CM Note CM Note Notes: Pt. d/cing to [facility] today. Naomie coordinated with Pt, bedside RN, and Sina at [facility] to determine d/c time. Plan for burr picker at 12:45. Pt. needs wheelchair and 2L O2. Sent d/c orders and meds via [facility]. Pt. states she has leg pain. RN is aware. Current plan: d/c today to [facility]. Date Signed: 01/21/2017 11:26 AM Electronically Signed By:Mandi Avery LCSW Intervention Information Intervention Type:*BURKE-Signed Date of Service:01/18/2017 09:40 AM Patient Type:Observation Staff Member:Margaret Wright Hours: Discipline: Severity: Comment:
== END 2017-01-21 14:45 | DRG 287 ==
LOC: EDUNIT# → F2W 19:52 → OBSVTOIN 01-18 16:48
PROVIDERS: ADMIT Internal Medicine; ATTEND Internal Medicine
PROC: B2111ZZ Fluoroscopy of Multiple Coronary Arteries using Low Osmolar Contrast (ICD-10-PCS; principal; 2017-01-19)
PROC: B2151ZZ Fluoroscopy of Left Heart using Low Osmolar Contrast (ICD-10-PCS; principal; 2017-01-19)
PROC: 4A023N7 Measurement of Cardiac Sampling and Pressure, Left Heart, Percutaneous Approach (ICD-10-PCS; principal; 2017-01-19)
CPT/HCPCS: 82607-90; 96374; 97162-GP; 97166-GO; A9500; C1760; G0378; G8978-GP-CJ; G8979-GP-CI; G8987-GO-CK; G8988-GO-CI; J1170; J1644; J1650; J2060; J2250; J3010; J3475; Q9967